=== PATIENT | male | born 1950 | race Caucasian/White ===

== ENCOUNTER 2017-01-02 10:00 | Outpatient (CLI) | payer MEDICARE, OTHER ==
[~2017-01-02] VITALS: Ht 177.8 cm; Wt 83.2 kg
--- NOTE | ~2017-01-02 | HEMODYNAMI ---
PATIENT:BRANDI PHILLIPS MEDICAL RECORD: [id number] : 50 [address] [id number] ADMISSION DATE: 01/02/17 Generatedon:01/02/201718:02 Patient name: BRANDI PHILLIPS Patient #: [id number] SSN: : 1950 Date of study: 01/02/2017 Page: Of Hemodynamic Procedure Report Patient Data Patient Demographics Procedure consent was obtained First Name: BRANDI Gender: Male Last Name: JACQUELINE : 1950 [facility] Initial: R Age: 66 year(s) Patient #: [id number] Race: Unknown Additional ID: [id number] Contact details Address: [facility] [place] State: [place] City: [place] Zip code: [address] Past Medical History Allergies Allergen Reaction Date Comments Reported IV contrast dye 01/02/2017 Admission Admission Data Admission Date: 01/02/2017 Admission Time: 12:20 Room #: [facility] Procedure Procedure Types Cath Procedure Diagnostic Procedure LHC LHC w/Coronaries w/Grafts PCI Procedure Coronary Stent Coronary Stent Initial Miscellaneous Procedures Moderate Sedation up to 45 minutes Procedure Description Procedure Date Procedure Date: 01/02/2017 Procedure Start Time: 16:37 Procedure Staff Name Function Radha Ayala RT Monitor Babar Fernandez RN Nurse Sadie Garces RN Nurse Blade Elkins MD Performing Physician Eduardo Fernandez RT Scrub Procedure Data Cath Procedure Fluoroscopy Diagnostic fluoroscopy Total fluoroscopy Time: time: 14.7 min 14.7 min Diagnostic fluoroscopy Total fluoroscopy dose: dose: 2759 mGy 2759 mGy Contrast Material Contrast Material Type Amount (ml) Isovue 300 245 Entry Location Entry Primary Successful Side Size Upsize Upsize Entry Closure Succes sful Closure Location (Fr) 1 (Fr) 2 (Fr) Remarks Device Remarks Brachial Right 6 Fr Exoseal artery Short Femoral Right 5 Fr 6 Fr Exoseal artery Short Estimated blood loss: 10 ml Diagnostic catheters Device Type Used For End Catheter Placement Cordis 5Fr Pigtail Abdominal Catheter (MP) aortogram with runoff Cordis 5Fr 3DRC Catheter SVG Angiography (MP) Cordis 5Fr 3DRC Catheter Right Coronary (MP) Angiography Procedure Complications No complications Procedure Medications Medication Administration Route Dosage Oxygen NC 2 l/min Solumedrol I.V. 125 mg Heparin Flush Bag added to field 2 bags (1000units/500ml NS) 0.9% NaCl I.V. 100 ml/hr Pepcid I.V. 20 mg Versed I.V. 1 mg Fentanyl I.V. 50 mcg Versed I.V. 1 mg Fentanyl I.V. 50 mcg Fentanyl I.V. 50 mcg Versed I.V. 1 mg Fentanyl I.V. 50 mcg Lidocaine 2% added to field 20 Heparin Bolus I.V. 4000 units Heparin Flush Bag added to field 1 bags (1000units/500ml NS) Versed I.V. 1 mg Nitro Haiku S.L. 400 mcg Hemodynamics Rest Heart Rate: 43 (bpm) Snapshots Pre Cath Intra NCS Post Cath Vital Signs Time Heart Resp SPO2 etCO2 NIBP (mmHg) Rhythm Pain Sedation Rate (ipm) (%) (mmHg) Status Level (bpm) 16:23:23 42 17 97 0 177/74(146) SB 0 (11) 10(A) , No pain 16:28:58 43 23 96 33.7 184/76(145) SB 0 (11) 10(A) , No pain 16:33:35 42 20 95 34.5 164/71(133) SB 0 (11) 10(A) , No pain 16:38:01 45 16 96 28.4 162/74(124) SB 0 (11) 10(A) , No pain 16:42:29 41 14 96 36.7 158/70(118) SB 0 (11) 9(A) , No pain 16:46:56 43 14 95 38.2 159/74(130) SB 0 (11) 9(A) , No pain 16:51:10 45 15 96 40.5 144/80(124) SB 0 (11) 9(A) , No pain 16:56:27 45 16 96 37.5 146/74(106) SB 0 (11) 9(A) , No pain 17:00:54 49 16 94 39.7 145/77(118) SB 0 (11) 9(A) , No pain 17:06:17 45 15 96 0 134/67(102) SB 0 (11) 9(A) , No pain 17:10:37 44 15 95 0 135/60(100) SB 0 (11) 9(A) , No pain 17:15:00 42 16 95 0 134/56(98) SB 0 (11) 9(A) , No pain 17:19:20 43 14 94 0 133/62(104) SB 0 (11) 9(A) , No pain 17:23:40 43 15 94 0 129/61(99) SB 0 (11) 9(A) , No pain 17:27:58 43 15 96 0 134/62(104) SB 0 (11) 9(A) , No pain 17:32:16 43 16 95 0 141/67(111) SB 0 (11) 9(A) , No pain 17:37:33 43 16 97 0 164/70(131) SB 0 (11) 10(A) , No pain 17:42:57 43 15 98 1.5 174/78(133) SB 0 (11) 10(A) , No pain 17:47:07 50 15 97 30 149/93(135) SB 0 (11) 10(A) , No pain 17:51:09 48 15 95 0 170/80(138) SB 0 (11) 10(A) , No pain 17:55:33 50 15 93 0 165/75(130) SB 0 (11) 10(A) , No pain Medications Time Medication Route Dose Verified Delivered Reason Notes Effectiveness by by 16:28:39 Oxygen NC 2 Blade Eckert Per physician l/min Brittni Fernandez RN 16:28:47 Solumedrol I.V. 125 Blade Eckert Per physician mg Brittni Fernandez RN 16:28:57 Heparin Flush added 2 Blade Eckert used for Bag to bags Brittni Fernandez RN procedure (1000units/500ml field NS) 16:29:06 0.9% NaCl I.V. 100 Blade Eckert Per physician ml/hr Brittni Fernandez RN 16:30:43 Pepcid I.V. 20 mg Blade Eckert Per physician Brittni Fernandez RN 16:33:22 Versed I.V. 1 mg Blade Eckert for sedation Brittni Fernandez RN 16:33:28 Fentanyl I.V. 50 Blade Babar for sedation mcg Brittni Fernandez RN 16:42:46 Versed I.V. 1 mg Blade Triniie for sedation Brittni Garces RN 16:42:51 Fentanyl I.V. 50 Blade Triniie for sedation mcg Brittni Garces RN 16:46:18 Fentanyl I.V. 50 Blade Buffie for sedation mcg Brittni Garces RN 16:47:35 Versed I.V. 1 mg Blade Buffie for sedation Brittni Garces RN 17:02:22 Versed I.V. 1 mg Blade Buffie for sedation Brittni Garces RN 17:02:26 Fentanyl I.V. 50 Blade Buffie for sedation mcg Brittni Garces RN 17:11:21 Lidocaine 2% added 20ml Blade Blade for local to vial Brittni Elkins MD anesthetic field 17:19:59 Heparin Bolus I.V. 4000 Blade Buffie for verifi ed units Brittni Garces RN anticoagulation with dr elkins 17:25:43 Heparin Flush added 1 Blade Blade used for Bag to bags Brittni Elkins MD procedure (1000units/500ml field NS) 17:47:06 Nitro Haiku S.L. 400 Buffie Per physician bhavesh Garces RNresidential sales consultant Log Time Note 16:00:27 Babar Fernandez RN sent for patient. Start room use. 16:21:34 Time tracking: Regular hours 16:21:38 Plan of Care:Hemodynamics will remain stable., Cardiac rhythm will remain stable., Comfort level will be maintained., Respiratory function will remain adequate., Patient/ family verbilizes understanding of procedure., Procedure tolerated without complication., Recovers from procedure without complications.. 16:21:44 Patient received from PCU to CCL 2 Alert and oriented. Tansferred to table in Supine position. 16:21:53 Warm blankets applied, and juan hugger turned on for patient comfort. 16:21:54 Correct patient and procedure confirmed by team. 16:21:55 ECG and BP/O2 sat monitors applied to patient. 16:21:55 Signed procedure consent form obtained from patient. 16:22:03 Vital chart was started 16:22:08 Baseline sample Acquired. 16:22:18 Rhythm: sinus bradycardia 16:22:20 Full Disclosure recording started 16:27:09 H&P Date Dictated: 01/02/2017 Within 30 days and on chart., ER History on chart.. 16:27:10 Pre-procedure instructions explained to patient. 16:27:11 Pre-op teaching completed and patient verbalized understanding. 16:27:18 Family in patients room. 16:27:20 Patient NPO since Midnight. 16:27:34 Patient allergic to IV contrast dye 16:27:40 Is the patient allergic to Iodine/contrast media? Yes. 16:27:52 Was the patient premedicated? Yes 16:27:54 Is patient on blood thinner?Yes 16:28:38 ACC The patient was administered the following blood thiners within the last 24 hours: ACCPlavix 16:28:39 Oxygen 2 l/min NC was administered by Babar Fernandez RN; Per physician; 16:28:47 Solumedrol 125 mg I.V. was administered by Babar Fernandez RN; Per physician; 16:28:56 Patient diabetic? Unknown. 16:28:57 Heparin Flush Bag (1000units/500ml NS) 2 bags added to field was administered by Babar Fernandez RN; used for procedure; 16:29:06 If diabetic: On Metformin? No 16:29:06 0.9% NaCl 100 ml/hr I.V. was administered by Babar Fernandez RN; Per physician; 16:29:10 Previous problem with sedation/anesthesia? No ? 16:29:15 Snore? No 16:29:16 Sleep apnea? No 16:29:19 Deviated septum? No 16:29:20 Opens mouth fully? Yes 16:29:21 Sticks out tongue? Yes 16:29:24 Airway obstruction? No ? 16:29:26 Dentures? No ? 16:29:29 Pre procedure: right dorsailis pedis pulse 2+ Normal; easily identifiable; not easily obliterated 16:29:31 Patient pain scale 0/10 ?. 16:29:38 IV patent on arrival in right forearm with 0.9% NaCl at [facility]. 16:29:41 Lab results completed and on chart. 16:29:43 Right groin area was prepped with chlora-prep and draped in sterile fashion 16:29:44 Sharps counted by scrub and verified by R.N. 16::44 Alarms reviewed by R. N. 16::47 Use device set Femoral Dx 16::48 Acist Syringe opened to sterile field. 16:29:49 Medline Cath Pack opened to sterile field. 16::49 Bag Decanter opened to sterile field. 16:29:50 St Markell 260cm J .035 wire opened to sterile field. 16:29:50 Terumo 5Fr [place] Sheath opened to sterile field. 16:29:51 Acist Hand Control opened to sterile field. 16:29:52 Diagnostic Infinity 5Fr Multipack catheter opened to sterile field. 16:29:52 Acist Manifold opened to sterile field. 16:29:53 Tegaderm 4 x 4 opened to sterile field. 16:30:13 Final Timeout: patient, procedure, and site verified with staff and physician. All members of the team are in agreement. 16:30:15 Right groin site verified by team. 16:30:19 Physical assessment completed. ASA score P 2 - A patient with mild systemic disease as per Blade Elkins MD. 16:30:24 Sedation plan: IV Moderate Sedation Medication:Versed, Fentanyl 16:30:43 Pepcid 20 mg I.V. was administered by Babar Fernandez RN; Per physician; 16:33:22 Versed 1 mg I.V. was administered by Babar Fernandez RN; for sedation; 16:33:28 Fentanyl 50 mcg I.V. was administered by Babar Fernandez RN; for sedation; 16:36:37 Zero performed for pressure channel P1 16:36:51 Procedure started. 16:37:58 Local anesthetic to right femoral artery with Lidocaine 2% by Blade Elkins MD.INITIAL ACCESS ONLY 16:42:28 Left groin area was prepped with chlora-prep and draped in sterile fashion 16:42:46 Versed 1 mg I.V. was administered by Sadie Garces RN; for sedation; 16:42:51 Fentanyl 50 mcg I.V. was administered by Sadie Garces RN; for sedation; 16:45:00 Local anesthetic to left femerol artery with Lidocaine 2% by Blade Elkins MD.ADDITIONAL ACCESS 16:46:18 Fentanyl 50 mcg I.V. was administered by Sadie Garces RN; for sedation; 16:47:35 Versed 1 mg I.V. was administered by Sadie Garces RN; for sedation; 16:55:00 Left Iliac occluded. 16:55:13 Right Brachial area was prepped with chlora-prep and draped in sterile fashion 16:55:39 Local anesthetic to right brachial artery with Lidocaine 2% by Blade Elkins MD.ADDITIONAL ACCESS 16:58:34 A 6 Fr Short sheath was inserted into the Right Brachial artery 17:00:12 Terumo 6Fr Slender Raynadesalemth opened to sterile field. 17:01:08 A Cordis 5Fr Pigtail Catheter (MP) was advanced over the wire and used for Abdominal aortogram with runoff. 17:02:22 Versed 1 mg I.V. was administered by Sadie Garces RN; for sedation; 17:02:26 Fentanyl 50 mcg I.V. was administered by Sadie Garces RN; for sedation; 17:04:15 LV gram done using GLASER 17:04:18 Injector settings: Ml/sec: 10, Volume: 20, 17:04:26 EF : 40 % 17:05:30 Catheter removed. 17:06:25 Cordis 6FR XBLAD 3.5 guide catheter opened to sterile field. 17:08:30 6 Fr XBLAD 3.5 guide catheter was inserted over the wire 17:08:36 Guide Catheter removed. unable to cannulate vessel. 17:09:09 Medtronic Launcher 6Fr EBU 3.0 guide catheter opened to sterile field. 17:09:30 6 Fr EBU 3.0 guide catheter was inserted over the wire 17:11:21 Lidocaine 2% 20ml vial added to field was administered by Blade Elkins MD; for local anesthetic; 17:11:32 Guide Catheter removed. unable to cannulate vessel. 17:12:01 St Markell 260cm J .035 wire opened to sterile field. 17:12:27 Re-Attempting access in RFA 17:13:46 A 5 Fr sheath was inserted into the Right Femoral artery 17:15:18 Terumo 6Fr [place] Sheath opened to sterile field. 17:15:28 Sheath upsized to a 6 Fr Short. 17:16:51 6 Fr EBU 3.0 guide catheter was inserted over the wire 17:19:21 Merit BasixCompak Inflation Kit opened to sterile field. 17:19:59 Heparin Bolus 4000 units I.V. was administered by Sadie Garces RN; for anticoagulation; verified with dr elkins 17:20:03 Robles Whisper J 300cm 0.014 guide wire opened to sterile field. 17:21:59 Whisper wire advanced. 17:23:46 The Reynold OTW 2.25 x 12 stent was advanced then removed because of failure to cross lesion 17:25:41 Inflation number: 1 A Euphora 2.0 x 20 Balloon was prepped and advanced across the Mid CX, then inflated to 17 LINDEN for 0:13 (min:sec). 17:25:43 Heparin Flush Bag (1000units/500ml NS) 1 bags added to field was administered by Blade Elkins MD; used for procedure; 17:25:55 Inflation number: 2 The Euphora 2.0 x 20 Balloon was reinflated across the Mid CX, to 17 LINDEN for 0:11 (min:sec). 17:26:41 Inflation number: 3 The Euphora 2.0 x 20 Balloon was reinflated across the Mid CX, to 23 LINDEN for 0:34 (min:sec). 17:27:13 Balloon removed over the wire. 17:29:07 Inflation Number: 4 A [place] OTW 2.25 x 12 stent was prepped and advanced across the Mid CX. The stent was deployed at 15 LINDEN for 0:10 (min:sec). 17:30:03 Stent catheter was removed intact over wire. 17:30:19 Guide catheter removed. 17:30:19 Wire removed. 17:31:34 A Cordis 5Fr 3DRC Catheter (MP) was advanced over the wire and used for SVG Angiography.to RCA 17:33:29 A Cordis 5Fr 3DRC Catheter (MP) was advanced over the wire and used for Right Coronary Angiography. 17:33:39 Catheter removed. 17:34:59 Sheath removed intact; hemostasis achieved with Exoseal to the Right Brachial artery. 17:35:04 Sheath removed intact; hemostasis achieved with Exoseal to the Right Femoral artery. 17:35:13 Procedure ended.(Physican Out) 17:36:30 Fluoroscopy time 14.70 minutes. 17:36:34 Fluoroscopy dose: 2759 mGy 17:36:34 Flurop Dose total: 2759 17:37:03 Contrast amount:Isovue 300 245ml. 17:37:04 Sharps counted by scrub and verified by R.N. 17:37:06 Insertion/operative site no bleeding no hematoma. 17:37:10 Post-op/insertion site Right Brachial artery dressed using a 4 x 4 and Tegaderm. 17:37:15 Post right brachial artery:stable, clean and dry 17:37:21 Post-op/insertion site Right Femoral artery dressed using a 4 x 4 and Tegaderm. 17:37:24 Post right femoral artery:stable, clean and dry 17:37:32 Post Procedure Pulses reassessed and unchanged 17:37:35 Post-procedure physical assessment completed. ASA score P 2 - A patient with mild systemic disease as per Blade Elkins MD. 17:37:37 Post procedure rhythm: unchanged. 17:38:14 Estimated blood loss: 10 ml 17:38:15 Post procedure instruction explained to patient.Patient verbalizes understanding. 17:38:16 Patient needs reinforcement of post procedure teaching. 17:38:35 Procedure type changed to Cath procedure, Diagnostic procedure, LHC, LHC w/Coronaries w/Grafts, PCI procedure, Coronary Stent, Coronary Stent Initial, Miscellaneous Procedures, Moderate Sedation up to 45 minutes 17:39:00 Procedure Complication : No complications 17:39:02 See physician's report for complete and final results. 17:39:46 Cordis 6Fr Exoseal opened to sterile field. 17:39:58 Cordis 6Fr Exoseal opened to sterile field. 17:41:32 Procedure and supply charges have been captured, reviewed, submitted and are correct. 17:47:06 Nitro Haiku 400 mcg S.L. was administered by Sadie Garces RN; Per physician; 17:59:38 Full Disclosure recording stopped 18:01:23 Report given to PCU. 18:01:25 Patient transfered to PCU with Bed. 18:01:28 End room use (Document Last) Intervention Summary Intervention Notes Time ActionType Lesion and Equipment Action# Pressure Duration Attributes Used 17:23:46 Discard Reynold OTW Stent 2.25 x 12 stent 17:25:41 Inflate Mid CX Euphora 1 17 00:14 balloon 2.0 x 20 Balloon 17:25:55 Reinflate Mid CX Euphora 2 17 00:11 balloon 2.0 x 20 Balloon 17:26:41 Reinflate Mid CX Euphora 3 23 00:34 balloon 2.0 x 20 Balloon 17:29:07 Place stent Mid CX Reynold OTW 4 15 00:10 2.25 x 12 stent Device Usage Item Name Manufacture Quantity Catalog Hospital Part Current Minimal Lot# / Number Charge Number Stock Stock Serial# Code Acist Acist 1 43884 056047 514879 385549 20 Syringe Medical Systems Inc Bag Microtek 1 2002S 806603 22043 006127 5 Insplorion Inc. Medline Cardinal 1 [id number] 030575 30454 194712 5 Cath Pack Health Terumo 5Fr Terumo 1 HSE004 679705 548836 228437 [address] [place] [address] Markell 2 365712 724590 446952 444918 30 260cm J .035 wire Acist Hand Acist 1 71795 560064 149137 169043 5 TeamStreamz Medical [employer] Library Inc Acist Acist 1 82695 594250 884829 352306 5 Oxitec Systems Inc Diagnostic Cardinal 1 [id number] 598811 06853 977414 30 Enterprise Communication Mediaity Health 5Fr Multipack catheter Tegaderm 4 3M 1 1626W 302293 272870 187868 5 x 4 Terumo 6Fr Terumo 1 [id number] 040869 762685 428533 40 Slender Glidesheath Cordis 5Fr Cardinal 1 [id number] 5 Pigtail Health Catheter (MP) Cordis 6FR Cardinal 1 [id number] 528889 930096 190651 10 XBLAD 3.5 Health guide catheter Medtronic Medtronic 1 [id number] 783612 82071 933704 0 Launcher 6Fr EBU 3.0 guide catheter Terumo 6Fr Terumo 1 [id number] 249670 096969 203195 40 [place] Sheath Merit Merit 1 [id number] 383556 182323 592852 15 BasThe Royal [employer] Medical Inflation Kit Robles Robles 1 [id number] 955787 216297 024089 5 Whisper J Vascular 300cm 0.014 guide wire [place] OTW Medtronic 1 [id number] 067742 55214 761080 5 [id number] 2.25 x 12 stent Euphora 2.0 Medtronic 1 [id number] 254653 546482 677382 5 [id number] x 20 Balloon Cordis 5Fr Cardinal 1 [id number] [place] [address] Catheter () Cordis 6Fr Cardinal 2 EX600 847003 543005 075928 10 [facility] Health Signature Audit [place] Stage Time Signature Unsigned Intra-Procedure 01/02/2017 Radha 6:01:41 PM Counts RT(R) Signatures Monitor : Radha Signature : Counts RT Date : Time : [id number] [place] [address]
[~2017-01-02 10:00] MED LIST: ACCURETIC 20-121 TAB PO; ASPIRIN 81 MG E81 MG PO; BAYER ASPIRIN325 MG PO; CARDURA2 MG PO; CELEXA20 MG PO; GLIPIZIDE10 MG PO; GLUCOTROL XL 5 M5 MG PO; LISINOPRIL10 MG PO; MUCOMYST PO; NITROQUICK0.4 MG SL; PERCOCET 10/3251 TA1 PO; PLAVIX75 MG PO; PREDNISONE20 MG PO; PREDNISONE5 MG PO; PROTONIX40 MG PO; TOPROL XL50 MG PO; VITAMIN C1000 MG PO; VITAMIN D31000 UNIT PO; VITAMIN E1000 UNIT PO; ZETIA10 MG PO
[2017-01-02 10:40] LABS: BASOPHILS 0.3 % (0-2); EOSINOPHILS 0.7 % (0-7); HEMOGLOBIN 16.1 g/dL (13.5-17.5); IMMATURE GRANULOCYTES 0.2 % (0-5); LYMPHOCYTES 15.9 % (15-50); MCHC 34.3 g/dL (31.0-37.0); MCV 90.4 fL (80.0-100.0); MEAN PLATELET VOLUME 10.2 fL (7.4-10.4); NEUTROPHILS 73.9 % (40-80); PLATELET COUNT 190 10x3/uL (130-400); RDW 12.5 % (11.5-14.5); WBC 6.1 10x3/uL (4.8-10.8)
[2017-01-02 11:03] LABS: ALBUMIN 3.4 g/dL (3.4-5.0); ALKALINE PHOSPHATASE 75 U/L (46-116); ALT (SGPT) 15 U/L (10-68); BILIRUBIN - TOTAL 0.39 mg/dL (0.2-1.3); CALC OSMOLALITY 282 mosm/kg (275-300); CALCIUM 9.1 mg/dL (8.5-10.1); CARBON DIOXIDE 28.1 mmol/L (21.0-32.0); CHLORIDE - SERUM 101 mmol/L (98-107); CREATININE - SERUM 1.4 mg/dL (0.6-1.3); GLUCOSE 207 mg/dL (74-106); SODIUM 137 mmol/L (136-145); UREA NITROGEN 20 mg/dL (7-18); eGFR NON AFRICAN AMERICAN 54 mL/min (90-120)
[2017-01-02 11:14] LABS: CHOLESTEROL, TOTAL 147 mg/dL (0-200); CKMB 1.7 U/L (0.0-3.6); CREATINE KINASE 58 UL (21-232); HDL CHOLESTEROL 37 mg/dL (32-96); LDL CHOLESTEROL 78 mg/dL (0-100); LDL-HDL RATIO 2.1 ratio (1.5-3.5); TRIGLYCERIDE 162 mg/dL (30-200); TROPONIN-I < 0.017 ng/mL (0.000-0.060)
--- NOTE | 2017-01-02 14:00 | NUR ---
PATIENT TO ROOM FROM ER, PATIENT IS ALERT AND ORIENTED AT THIS TIME, PATIENT WALKING AROUND ROOM. PATIENT IS BEING ADMITTED WITH CHEST PAIN, DENIES ANY CURRENT CHEST PAIN. PATIENT HAS A 20 G R WRIST IV THAT IS SL AT THIS TIME. PATIENT DENIES ANY NEEDS. CPOC
[2017-01-02 14:39] VITALS: BP 173/54; Ht 177.8 cm; Wt 83.2 kg
--- NOTE | 2017-01-02 15:09 | NUR ---
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
--- NOTE | 2017-01-02 16:15 | NUR ---
PATIENT GONE TO STRAP BUCKLER MACHINE
--- NOTE | 2017-01-02 18:00 | NUR ---
PATIENT BACK FROM [facility], PATIENT ALERT AND ORIENTED. R GROIN SITE WNL, NO HEMATOMA. R BRACHIAL SITE, WNL. NO SIGNS OF HEMATOMA. AT BEDSIDE. PATIENT VS STABLE. CPOC
--- NOTE | 2017-01-02 18:44 | NUR ---
PATIENT INFORMED I WAS LEAVING, TIME FOR SWITCHING SHIFTS. PATIENT NEEDS MET. DENIES ANY OTHER NEEDS. CPOC
[2017-01-02 19:00] VITALS: BP 159/60
[2017-01-03 01:21] VITALS: BP 166/52
[2017-01-03 04:00] VITALS: BP 175/53
--- NOTE | 2017-01-03 04:02 | NUR ---
PATIENT RESTING WELL IN BED, IS AT BEDSIDE. BOTH SITES FROM HEART CATH ARE CLEAN DRY AND INTACT. CALL LIGHT IN REACH.
--- NOTE | 2017-01-03 08:04 | NUR ---
AM ROUNDS - PT IS AWAKE AND SITTING IN THE CHAIR AT THIS TIME. AT BEDSIDE. MONITOR AHOWING AR, HR 69. IV TO RIGTH WRIST, RIGHT WRIST. BED AT LOWEST POSITION. CALL SHELBY IN USE/REACH. SIDE RAILS UP X2. WILL CONTINEU TO MONITOR
--- NOTE | 2017-01-03 08:47 | NUR ---
IV REMOVED WTIH TIP INTACT. NO BLEEDING FROM WRIST SITE AND NO BLEEDING FROM GROIN SITE. DISCHARGE INSTRUCTIONS GIVEN TO PT. PT UNDERSTANDS. TO CAR VIA [place].
--- NOTE | 2017-01-17 12:14 | DS ---
PATIENT:BRANDI WILBURN :50 MEDICAL RECORD: [id number] DISCHARGE SUMMARY ADMISSION DATE: 01/02/17 DISCHARGE DATE: 01/03/17 DISCHARGE DIAGNOSES: 1. Angina. 2. Coronary artery disease. 3. PTCA and stent of left circumflex this admission. 4. Previous bypass surgery. 5. Previous PTCA and stent. 6. Hypertension. 7. Hyperlipidemia. 8. Peripheral vascular disease. HISTORY AND HOSPITAL COUSE: Mr. Wilburn presented with anginal symptomatology. Found to have significant disease of the left circumflex and RCA. Underwent PTCA and stent of the left circumflex. He was discharged home, will be brought back next Monday for PTCA and stent of the RCA. TRANSINT:[id number] Voice Confirmation ID: [id number] DOCUMENT ID: [id number] DALLAS DEWITT MD at 1214 CC: [id number] DICTATION DATE: 01/03/17 0756 ORDNANCE ENGINEERING TECHNICIAN: 01/03/17 1108 DEP CLI 01/03/17 [id number] [place] [address]
--- NOTE | 2017-01-17 12:14 | HP ---
PATIENT: BRANDI WILBURN MEDICAL RECORD: [id number] ACCOUNT: [id number] LOCATION:[facility] : 50 ADMISSION DATE: 01/02/17 HISTORY AND PHYSICAL EXAMINATION DIAGNOSES: 1. Unstable angina. 2. Coronary artery disease. 3. Status post coronary bypass graft surgery. 4. Status post PTCA stent. 5. Hypertension. 6. Hyperlipidemia. HISTORY OF PRESENT ILLNESS: Mr. Wilburn presents with 2 days of unstable anginal symptomatology in an escalating fashion. He does have a history of coronary artery disease, bypass surgery 11 years ago. PTCA stent approximately 2 years ago. He has T-wave inversions on his EKG. PHYSICAL EXAMINATION: GENERAL APPEARANCE: Well-nourished, well-developed, appears stated age. Level of distress, comfortable. PSYCHIATRIC: Mental status, alert, normal affect. Orientation, oriented to time, place and person. EYES: Lids and conjunctiva, noninjected. No discharge, no pallor. ENT: Lips, teeth, gums, normal dentition. Oropharynx, no cyanosis, no pallor. NECK: Carotid arteries, bilateral normal upstroke, no bruits, no thrills. JUGULAR VEINS: No jugular venous pressure or distention. CERVICAL LYMPH NODES: Nontender, nonenlarged. THYROID: Not enlarged. Nontender. No nodules. LUNGS: Respiratory effort, unlabored. CHEST: Normal curvature. No thoracic deformity. No chest wall tenderness. Percussion, resonant. Auscultation, clear. No wheezes, no rales, no rhonchi. CARDIOVASCULAR: Precordial exam, nondisplaced. No heaves or pericardial thrills. Rate and rhythm, regular. Heart sounds, normal S1, normal S2. No S3, no gallop, no rub. Systolic murmur, not heard. Diastolic murmur, not heard. EXTREMITIES: No cyanosis, no edema. Peripheral pulses, full and equal in all extremities, except as noted. No bruits appreciated. ABDOMEN: Soft, nondistended. Normal aorta. No bruit. Nontender. No masses. Liver, nontender, no hepatomegaly. Spleen, nontender, no splenomegaly. MUSCULOSKELETAL: No joint tenderness. No joint swelling. No erythema. NEUROLOGICAL: Normal gait, normal strength, normal tone. SKIN: Warm and dry. REVIEW OF SYSTEMS: The patient reports easy bruising but reports no swollen glands. The patient reports no fever, no night sweats, no significant weight gain, no significant weight loss. No significant exercise tolerance. The patient reports no dry eyes, no irritation, no vision change. Patient reports no difficulty hearing and no ear pain. Patient reports no frequent nose bleeds or nose and sinus problems. Patient reports on arm pain on exertion. No shortness of breath while lying down. No history of heart murmur. Patient reports no cough, no wheezing or coughing up blood. Patient reports no abdominal pain, no vomiting. Normal appetite. No diarrhea and not vomiting blood. No nausea and no constipation. Patient reports no incontinence. No difficulty urinating. No hematuria. No increased frequency. Patient reports no muscle aches. No weakness, no arthralgias, no back pain. No swelling of the HISTORY AND PHYSICAL [id number] BRANDI WILBURN extremities. Patient reports no abnormal mole, no jaundice, no rashes. Reports no loss of consciousness. No weakness and no numbness. No seizures, dizziness, or headaches. The patient reports no depression, no sleep disturbance, feeling safe in a relationship and no alcohol abuse. Patient reports on fatigue. Reports no runny nose or sinus pressure. No itching, no hives, and no frequent sneezing. OVERALL IMPRESSION: Unstable anginal symptomatology with abnormal ECG, most likely he has hemodynamically significant coronary artery disease. We will proceed with coronary angiography. Further care depends upon findings of the angiography. TRANSINT:[id number] Voice Confirmation ID: [id number] DOCUMENT ID: [id number] DALLAS DEWITT MD at 1214 CC: [id number] DICTATION DATE: 01/02/171217 HOUSING COORDINATOR: 01/02/17 1323 DEP CLI 01/03/17 [place] [address]
--- NOTE | 2017-01-17 12:17 | OP ---
PATIENT NAME: BRANDI PHILLIPS MEDICAL RECORD: [id number] :50 LOCATION:D.ER ADMISSION DATE: SURGEON: DALLAS DEWITT MD DATE OF OPERATION: 01/02/2017 PROCEDURES: 1. Percutaneous transluminal coronary angioplasty stent, left circumflex. 2. Left heart catheterization. 3. Selective coronary angiography. 4. Vein graft angiography. 5. Left ventriculogram. INDICATION: Angina and coronary artery disease. PROCEDURE IN DETAIL: After informed consent was obtained and after detailed explanation of risks, benefits as well as alternative therapies, the patient elected to proceed with angiogram and angioplasty. The right femoral area was prepped and draped in normal sterile fashion. The right femoral artery was cannulated via modified Seldinger technique with placement of 6-Japanese sheath. All catheters exchanged through this sheath. FINDINGS: The left ventriculogram was performed in standard 30-degree GLASER view reveals global hypokinesis, ejection fraction 40%. SELECTIVE CORONARY ANGIOGRAPHY: 1. Left main is with no significant angiographic disease. 2. Left anterior descending is subtotally occluded in mid vessel. 3. LIRA to the LAD is widely patent. 4. The left circumflex is nongrafted. There is a 90% stenosis proximally. This is worse from previous angiography. 5. The right coronary artery is totally occluded. 6. Vein graft to the right coronary artery is patent. The distal right coronary artery has 90% stenosis. PTCA STENT OF THE LEFT CIRCUMFLEX: The stent used was a 2.25- x 12-mm Reynold. Result was 0% residual stenosis. OVERALL IMPRESSION: Successful percutaneous transluminal coronary angioplasty stent of the left circumflex going from 90% initial stenosis to 0% residual stenosis. PLAN: PTCA stent of the distal right coronary through the vein graft in the near future. TRANSINT:[id number] Voice Confirmation ID: [id number] DOCUMENT ID: [id number] DALLAS DEWITT MD at 1217 CC: [id number] DICTATION DATE: 01/02/171756 ALGEBRA TUTOR: 01/02/17 2339 DEP CLI 01/03/17 [place] [address]
--- NOTE | 2017-01-17 12:17 | OP ---
PATIENT NAME: BRANDI PHILLIPS MEDICAL RECORD: [id number] :50 LOCATION:D.ER ADMISSION DATE: SURGEON: DALLAS DEWITT MD DATE OF OPERATION: 01/02/2017 PROCEDURES PERFORMED: 1. Aortofemoral runoff. 2. Abdominal aortography. INDICATION: Claudication and peripheral vascular disease. PROCEDURE IN DETAIL: The right brachial area was prepped and draped in normal sterile fashion. The right brachial artery was cannulated via modified Seldinger technique with placement of 5-Croatian sheath. All catheters exchanged through this sheath. FINDINGS: The left leg is totally occluded at the common iliac. This then reconstitutes via collaterals. There is a crossover graft going from right to left. Stents then are in the SFA. These are patent with no significant restenosis. The distal SFA is widely patent as well. Popliteal and infrapopliteal vessels are patent with 3-vessel runoff to the foot. RIGHT LEG: A. ILIAC: The common internal and external iliacs have previously placed stents. These are patent with no significant restenosis. Femoral system is widely patent with only mild irregularities. Popliteal and infrapopliteal vessels are patent. The catheter was then retracted from the abdominal aortography. Abdominal aortography reveals no significant abdominal aortic disease. No dissection or aneurysm formation. OVERALL IMPRESSION: Wide patency of the right leg, total occlusion of the left leg, patent femoral-femoral crossover graft. Continue medical management of the peripheral vascular disease and peripheral risk factors. TRANSINT:[id number] Voice Confirmation ID: [id number] DOCUMENT ID: [id number] DALLAS DEWITT MD at 1217 CC: [id number] DICTATION DATE: 01/02/171756 FIBRE COMPOSITE TECHNICIAN: 01/02/17 2350 DEP CLI 01/03/17 [place] [address]
== END 2017-01-03 10:50 | disposition home or self-care (01) ==
LOC: OBSVTIME → D.ER 10:00 → OBSVTIME 12:20 → D.M2 12:20 → D.ER 12:20 → D.M2 12:20 → EDSTATUS 14:00 → D.M2 01-03 10:50 → D.ER 01-03 10:50 → D.M2 01-03 10:50
PROVIDERS: Emergency Medicine
DX: I25.110 Atherosclerotic heart disease of native coronary artery with unstable angina pectoris (principal); Z95.5 Presence of coronary angioplasty implant and graft; Z95.1 Presence of aortocoronary bypass graft; E78.5 Hyperlipidemia, unspecified; I10 Essential (primary) hypertension; R94.31 Abnormal electrocardiogram [ECG] [EKG]; I73.9 Peripheral vascular disease, unspecified; I70.92 Chronic total occlusion of artery of the extremities
CPT/HCPCS: 93459; C9600

== ENCOUNTER 2017-01-09 08:30 | Outpatient (CLI) | payer MEDICARE, OTHER ==
[~2017-01-09] VITALS: Ht 177.8 cm; Wt 84.1 kg
--- NOTE | ~2017-01-09 | HEMODYNAMI ---
PATIENT:BRANDI PHILLIPS MEDICAL RECORD: [id number] : 50 LOCATION:D.CAT ADMISSION DATE: 01/09/17 Generatedon:01/09/201710:57 Patient name: BRANDI PHILLIPS Patient #: [id number] SSN: : 1950 Date of study: 01/09/2017 Page: Of Hemodynamic Procedure Report Patient Data Patient Demographics Procedure consent was obtained First Name: BRANDI Gender: Male Last Name: JACQUELINE : 1950 [facility] Initial: R Age: 66 year(s) Patient #: [id number] Race: Unknown Additional ID: [id number] Contact details Address: [facility] [place] State: [place] City: [place] Zip code: [address] Past Medical History Allergies Allergen Reaction Date Comments Reported IV contrast dye 01/02/2017 Other allergy 01/09/2017 iodine Admission Admission Data Admission Date: 01/09/2017 Admission Time: 8:30 Lab Results Lab Result Date: 01/09/2017 Lab Result Time: 0:00 Biochemistry Name Units Result Min Max BUN mg/dl 20 --(----)*- 7 18 Creatinine mg/dl 1.4 --(----)*- 0.6 1.3 Procedure Procedure Types Cath Procedure PCI Procedure AMI/SVG/HOUSEKEEPING SUPERVISOR HOTEL PTCA or Stent SVG-BMS/REGLA Initial Miscellaneous Procedures Moderate Sedation up to 15 minutes Procedure Description Procedure Date Procedure Date: 01/09/2017 Procedure Start Time: 10:46 Procedure End Time: 10:56 Procedure Staff Name Function Blade Elkins MD Performing Physician Nelsy Hough RT Monitor Kayli Moore RT Scrub Sera Cooper RN Nurse Babar Fernandez RN Plant Operations Coordinator Procedure Data Cath Procedure Fluoroscopy Diagnostic fluoroscopy Total fluoroscopy Time: 2.9 time: 2.9 min min Diagnostic fluoroscopy Total fluoroscopy dose: 453 dose: 453 mGy mGy Contrast Material Contrast Material Type Amount (ml) Isovue 300 49 Entry Location Entry Primary Successful Side Size Upsize Upsize Entry Closure Succes sful Closure Location (Fr) 1 (Fr) 2 (Fr) Remarks Device Remarks Femoral Right 6 Fr Exoseal artery Short Estimated blood loss: 5 ml Procedure Complications No complications Procedure Medications Medication Administration Route Dosage Oxygen NC 2 l/min Lidocaine 2% added to field 20 Heparin Flush Bag added to field 2 bags (1000units/500ml NS) 0.9% NaCl I.V. 100 ml/hr Fentanyl I.V. 50 mcg Versed I.V. 1 mg Versed I.V. 1 mg Fentanyl I.V. 50 mcg Fentanyl I.V. 50 mcg Versed I.V. 1 mg Heparin Bolus I.V. 4000 units Fentanyl I.V. 50 mcg Versed I.V. 1.5 mg Hemodynamics Rest Heart Rate: 48 (bpm) Snapshots Pre Cath Intra NCS Post Cath Vital Signs Time Heart Resp SPO2 etCO2 NIBP (mmHg) Rhythm Pain Sedation Rate (ipm) (%) (mmHg) Status Level (bpm) 10:30:37 47 16 99 32.2 189/76(140) SB 0 (11) 10(A) , No pain 10:35:37 48 17 99 33.7 Measuring NSR 0 (11) 10(A) , No pain 10:35:57 49 18 99 33.7 178/72(135) NSR 0 (11) 10(A) , No pain 10:40:25 46 17 97 36.7 167/71(127) NSR 0 (11) 10(A) , No pain 10:44:48 49 14 95 37.4 163/66(133) NSR 0 (11) 9(A) , No pain 10:49:46 48 18 95 40.4 Measuring NSR 0 (11) 9(A) , No pain 10:50:11 47 14 95 43.4 166/74(130) NSR 0 (11) 9(A) , No pain 10:54:39 48 14 97 32.9 161/80(121) NSR 0 (11) 10(A) , No pain Medications Time Medication Route Dose Verified Delivered Reason Notes Effectiveness by by 10:29:28 Oxygen NC 2 Blade Zamora used for l/min Brittni Cooper traffic workforce representative 10:29:35 Lidocaine 2% added 20ml Blade Murguia for local to vial Brittni Elkins MD anesthetic field 10:29:43 Heparin Flush added 2 Blade Murguia used for Bag to bags Brittni Elkins MD procedure (1000units/500ml field NS) 10:29:54 0.9% NaCl I.V. 100 Blade Sera Per physician ml/hr Brittni Cooper RN 10:43:23 Fentanyl I.V. 50 Babar Sera for sedation mcg Jim Cooper RN RN 10:43:35 Versed I.V. 1 mg Blade Sera for sedation Brittni Cooper RN 10:45:16 Versed I.V. 1 mg Blade Sera for sedation Brittni Cooper RN 10:45:25 Fentanyl I.V. 50 Blade Sera for sedation mcg Brittni Cooper RN 10:49:14 Fentanyl I.V. 50 Blade Sera for sedation mcg Brittni Cooper RN 10:49:24 Heparin Bolus I.V. 4000 Blaed Sera for verifi ed units Brittni Cooper RN anticoagulation by dr. elkins 10:49:24 Versed I.V. 1 mg Blade Sera for sedation Brittni Cooper RN 10:52:30 Fentanyl I.V. 50 Blade Sera for sedation mcg Brittni Cooper RN 10:52:38 Versed I.V. 1.5 Blade Sera for sedation mg Brittni Cooper RN Procedure Log Time Note 10:22:28 Diagnostic Cath status Elective 10:22:30 Babar Fernandez RN sent for patient. Start room use. 10:22:32 Time tracking: Regular hours 10:22:40 Plan of Care:Hemodynamics will remain stable., Cardiac rhythm will remain stable., Comfort level will be maintained., Respiratory function will remain adequate., Patient/ family verbilizes understanding of procedure., Procedure tolerated without complication., Recovers from procedure without complications.. 10:22:52 Patient received from Pre/Post Procedure Room to CCL 2 Alert and oriented. Tansferred to table in Supine position. 10:22:54 Warm blankets applied, and juan hugger turned on for patient comfort. 10:22:55 Correct patient and procedure confirmed by team. 10:22:59 Signed procedure consent form obtained from patient. 10:23:08 H&P Date Dictated: 01/09/2017 Within 30 days and on chart., H&P Addendum completed by physician on day of procedure. (MUST COMPLETE FOR ALL OUTPATIENTS). 10:28:05 Vital chart was started 10:29:28 Oxygen 2 l/min NC was administered by Sera Cooper RN; used for procedure; 10:29:35 Lidocaine 2% 20ml vial added to field was administered by Blade Elkins MD; for local anesthetic; 10:29:43 Heparin Flush Bag (1000units/500ml NS) 2 bags added to field was administered by Blade Elkins MD; used for procedure; 10:29:54 0.9% NaCl 100 ml/hr I.V. was administered by Sera Cooper RN; Per physician; 10:30:39 Baseline sample Acquired. 10:30:43 Rhythm: sinus bradycardia 10:30:45 Full Disclosure recording started 10:30:46 Pre-procedure instructions explained to patient. 10:30:47 Pre-op teaching completed and patient verbalized understanding. 10:30:48 Family in waiting room. 10:30:49 Patient NPO since Midnight. 10:31:03 Patient allergic to Other allergyiodine 10:31:06 Is the patient allergic to Iodine/contrast media? Yes. 10:31:07 Was the patient premedicated? Yes 10:31:08 Is patient on blood thinner?Yes 10:31:10 ACC The patient was administered the following blood thiners within the last 24 hours: ACCPlavix 10:31:17 Patient diabetic? No. 10:31:19 Previous problem with sedation/anesthesia? No ? 10:31:21 Snore? Yes 10:31:23 Sleep apnea? No 10:31:24 Opens mouth fully? No 10:31:28 Sticks out tongue? Yes 10:31:31 Airway obstruction? No ? 10:31:33 Dentures? No ? 10:31:37 Pre procedure: right dorsailis pedis pulse 1+ Palpable, but thready & weak; easily obliterated 10:31:40 Pre procedure: left dorsailis pedis pulse 1+ Palpable, but thready & weak; easily obliterated 10:31:43 Patient pain scale 0/10 ?. 10:31:48 IV patent on arrival in left forearm with 0.9% NaCl at [facility]. 10:34:52 Lab Result : BUN 20 mg/dl 10::52 Lab Result : Creatinine 1.4 mg/dl 10:34:56 Lab results completed and on chart. 10:35:00 Right groin area was prepped with chlora-prep and draped in sterile fashion 10:35:01 Alarms reviewed by R. N. 10:35: Sharps counted by scrub and verified by R.N. 10:41:03 Physician arrived 10:41:03 --------ALL STOP TIME OUT------ 10:41:04 Final Timeout: patient, procedure, and site verified with staff and physician. All members of the team are in agreement. 10:41:06 Right groin site verified by team. 10:41:08 Physical assessment completed. ASA score P 2 - A patient with mild systemic disease as per Blade Elkins MD. 10:41:12 Sedation plan: IV Moderate Sedation Medication:Versed, Fentanyl 10:42:41 Zero performed for pressure channel P1 10:43:02 Use device set TAUTH PCI 10:43:04 INFLATOR Merit BasixCompak Inflation Kit (RS1231) opened to sterile field. 10:43:05 Terumo 6Fr [place] Sheath opened to sterile field. 10:43:09 Robles Whisper J 300cm 0.014 guide wire opened to sterile field. 10:43:16 EXOSEAL 6Fr (EX600) opened to sterile field. 10:43:23 Fentanyl 50 mcg I.V. was administered by Sera Cooper RN; for sedation; 10:43:26 Use device set Acist 10:43:28 ACIST Manifold (29636) opened to sterile field. 10:43:29 ACIST Hand Control (20703) opened to sterile field. 10:43:31 ACIST Syringe (61599) opened to sterile field. 10:43:35 Versed 1 mg I.V. was administered by Sera Cooper RN; for sedation; 10:44:05 GUIDE 6FR MB 1 catheter (LA6MB1) opened to sterile field. 10:44:57 Procedure started. 10:45:16 Versed 1 mg I.V. was administered by Sera Cooper RN; for sedation; 10:45:25 Fentanyl 50 mcg I.V. was administered by Sera Cooper RN; for sedation; 10:46:06 Local anesthetic to right femoral artery with Lidocaine 2% by Blade Elkins MD.INITIAL ACCESS ONLY 10:47:47 A 6 Fr Short sheath was inserted into the Right Femoral artery 10:47:54 6 Fr mb 1 guide catheter was inserted over the wire 10:48:12 whisper wire advanced. 10:49:14 Fentanyl 50 mcg I.V. was administered by Sera Cooper RN; for sedation; 10:49:24 Heparin Bolus 4000 units I.V. was administered by Sera Cooper RN; for anticoagulation; verified by dr. elkins 10:49:24 Versed 1 mg I.V. was administered by Sera Cooper RN; for sedation; 10:52:30 Fentanyl 50 mcg I.V. was administered by Sera Cooper RN; for sedation; 10:52:38 Versed 1.5 mg I.V. was administered by Sera Cooper RN; for sedation; 10:52:57 Inflation Number: 1 A JEAN PAUL OTW 2.5 x 26 stent ([id number]) was prepped and advanced across the Undefined2. The stent was deployed at 19 LINDEN for 0:10 (min:sec). 10:54:45 Stent catheter was removed intact over wire. 10:54:45 Wire removed. 10:54:46 Guide catheter removed. 10:54:55 Sheath removed intact; hemostasis achieved with Exoseal to the Right Femoral artery. 10:54:56 Procedure ended.(Physican Out) 10:55:16 Fluoroscopy time 02.90 minutes. 10:55:21 Fluoroscopy dose: 453 mGy 10:55:21 Flurop Dose total: 453 10:55:25 Contrast amount:Isovue 300 49ml. 10:55:27 Sharps counted by scrub and verified by R.N. 10:55:29 Insertion/operative site no bleeding no hematoma. 10:55:32 Post-op/insertion site Right Femoral artery dressed using a 4 x 4 and Tegaderm. 10:55:35 Post right femoral artery:stable 10:55:36 Post Procedure Pulses reassessed and unchanged 10:56:02 Post procedure rhythm: unchanged. 10:56:05 Estimated blood loss: 5 ml 10:56:10 Post procedure instruction explained to patient.Patient verbalizes understanding. 10:56:11 Patient needs reinforcement of post procedure teaching. 10:56:36 Procedure and supply charges have been captured, reviewed, submitted and are correct. 10:56:40 Procedure Complication : No complications 10:56:43 Vital chart was stopped 10:56:44 See physician's report for complete and final results. 10:56:50 Report given to Pre/Post Procedure Room. 10:56:53 Patient transfered to Pre/Post Procedure Room with Stretcher. 10:56:56 Procedure ended. 10:56:56 Full Disclosure recording stopped 10:57:03 ACC-PCI Only Patient was given prescriptions, or instructed by Blade Elkins MD to start/continue the following medications upon discharge: Plavix 10:57:05 End room use (Document Last) Intervention Summary Intervention Notes Time ActionType Lesion and Equipment Action# Pressure Duration Attributes Used 10:52:[address] Place stent Undefined2 JEAN PAUL OTW 2.5 1 19 00:10 x 26 stent ([id number]) Device Usage Item Name Manufacture Quantity Catalog Hospital Part Current Minim al Lot# / Number Charge Number Stock Stock Serial# Code INFLATOR [facility] 1 [id number] 085432 210223 15 [facility] BasixCompak Inflation Kit (NO3236) Terumo 6Fr Terumo 1 [id number] 245847 032297 030161 40 [place] Sheath Robles Robles 1 [id number] 092206 543341 429523 5 Whisper J Vascular 300cm 0.014 guide wire EXOSEAL 6Fr Cardinal 1 EX600 798361 493423 622759 10 (EX600) Health ACIST Acist 1 56808 466283 647742 009128 5 Manifold Medical (05273) Systems Inc ACIST Hand Acist 1 22821 280757 880965 290412 5 Control Medical (71769) Systems Inc ACIST Syringe Acist 1 77844 045608 437962 989785 20 (00528) Medical Systems Inc GUIDE 6FR MB Medtronic 1 LA6MB1 347069 07077 743702 1 1 catheter (LA6MB1) JEAN PAUL OTW 2.5 Medtronic 1 [id number] 917382 27968 338362 5 [id number] x 26 stent ([id number]) Signature Audit Rush Stage Time Signature Unsigned Intra-Procedure 01/09/2017 Nelsy Hough 10:57:36 AM RT(R) Signatures Monitor : Nelsy Hough RT Signature : Date : Time : [facility] [address] [place] [address]
[2017-01-09 09:29] VITALS: BP 182/75; Ht 177.8 cm; Wt 84.1 kg
[2017-01-09 10:06] LABS: ANION GAP 12.9 mmol/L (8-16); CALCIUM 8.7 mg/dL (8.5-10.1); CARBON DIOXIDE 25.2 mmol/L (21.0-32.0); CREATININE - SERUM 1.4 mg/dL (0.6-1.3); POTASSIUM - SERUM 4.1 mmol/L (3.5-5.1)
[2017-01-09 10:27] LABS: BASOPHILS 0.1 % (0-2); EOSINOPHILS 0.1 % (0-7); HEMATOCRIT 45.8 % (42.0-54.0); IMMATURE GRANULOCYTES 0.5 % (0-5); LYMPHOCYTES 9.3 % (15-50); MCH 31.1 pg (26.0-34.0); MCHC 34.9 g/dL (31.0-37.0); MCV 88.9 fL (80.0-100.0); MEAN PLATELET VOLUME 10.5 fL (7.4-10.4); MONOCYTES 4.3 % (2-11); NEUTROPHILS 85.7 % (40-80); PLATELET COUNT 191 10x3/uL (130-400); RBC 5.15 10x6/uL (4.20-6.10); RDW 12.5 % (11.5-14.5); WBC 8.4 10x3/uL (4.8-10.8)
--- NOTE | 2017-01-09 11:29 | NUR ---
1125 LYING FLAT, ROOM AIR WITH NO RESP DISTRESS. SINUS YANETH, RATE 46 W NO C/O CHEST PAIN. PULSES PALP X 4. R GROIN 6F EXOSEAL C/D/I W NOHEMATOMA OR BLEEDING. CAP REFILL BRISK X 4. FAMILY AT SIDE.
--- NOTE | 2017-01-09 12:34 | NUR ---
VOIDED 300CC VIA URINAL. R GROIN REMAINS C/D/I. EATING TURKEY SANDWICH AND DRINKING SODA WITH NO C/O NAUSEA. MOM AT BEDSIDE.
--- NOTE | 2017-01-09 14:22 | NUR ---
1400 ELEAVED HOB, WILL MONITOR R GROIN FOR BLEEDING. ELAYNE Zambrano BEDSIDE.
--- NOTE | 2017-01-09 14:50 | NUR ---
1430 PIV REMOVED WITH BANDAID APPLIED. 1445 UP TO BEDSIDE TO DRESS. VOIDED 200CC VIA URINAL. D/C INSTRUCTIONS DISCUSSED WITH PATIENT AND FAMILY AT BEDSIDE. WHEELED OUT VIA WHEELCHAIR BY CATH TEAM.
--- NOTE | 2017-01-17 12:17 | OP ---
PATIENT NAME: BRANDI PHILLIPS MEDICAL RECORD: [id number] :50 LOCATION:D.CAT ADMISSION DATE: SURGEON: DALLAS DEWITT MD DATE OF OPERATION: 01/09/2017 PROCEDURES: 1. PTCA and stent to RCA through vein graft. 2. Selective coronary and vein graft angiography. INDICATIONS: Angina and coronary artery disease. PROCEDURE IN DETAIL: After informed consent was obtained and after detailed explanation of risks and benefits as well as alternative therapies, the patient elected to proceed with angiogram and angioplasty. The right femoral area was prepped and draped in normal sterile fashion. Right femoral artery was cannulated via modified Seldinger technique with placement of a 6-Singaporean sheath. All catheters were exchanged through the sheath. FINDINGS: The right coronary has 85 plus percent stenosis after the patent vein graft. This was addressed with a 2.5 x 26-mm Reynold stent, taken to 19 atmospheres. Result was 0% residual stenosis. OVERALL IMPRESSION: Successful PTCA and stent of the RCA through the patent vein graft going from 85% initial stenosis to 0% residual. TRANSINT:[id number] Voice Confirmation ID: [id number] DOCUMENT ID: [id number] DALLAS DEWITT MD at 1217 CC: [id number] DICTATION DATE: 01/09/17 1059 AUTO JOB ESTIMATOR: 01/09/17 1205 DEP CLI 01/09/17 [id number] [place] [address]
== END 2017-01-09 14:51 | disposition home or self-care (01) ==
LOC: D.CATH 08:30
PROVIDERS: Internal Medicine Interventional Cardiology
DX: I25.110 Atherosclerotic heart disease of native coronary artery with unstable angina pectoris (principal); Z95.1 Presence of aortocoronary bypass graft; I10 Essential (primary) hypertension; E78.5 Hyperlipidemia, unspecified; Z95.5 Presence of coronary angioplasty implant and graft; Z01.812 Encounter for preprocedural laboratory examination
CPT/HCPCS: 93459; C9600

== ENCOUNTER → 2018-02-27 12:08 | Outpatient (CLI) | payer MEDICARE, OTHER ==
[2017-01-09 09:29] VITALS: BMI 26.6
== END | disposition home or self-care (01) ==
LOC: D.CT 12:08
DX: I70.213 Atherosclerosis of native arteries of extremities with intermittent claudication, bilateral legs (principal)

== ENCOUNTER → 2018-03-05 08:31 | Outpatient (CLI) | payer MEDICARE, OTHER ==
[2017-01-09 09:29] VITALS: BMI 26.6
[2018-03-05 09:25] LABS: CREATININE - SERUM 1.4 mg/dL (0.6-1.3)
== END | disposition home or self-care (01) ==
LOC: D.CT 08:31
PROVIDERS: Internal Medicine Cardiovascular Disease
DX: I70.213 Atherosclerosis of native arteries of extremities with intermittent claudication, bilateral legs (principal)

== ENCOUNTER → 2018-08-20 08:25 | Outpatient (CLI) | payer MEDICARE, OTHER ==
[2017-01-09 09:29] VITALS: BMI 26.6
== END | disposition home or self-care (01) ==
LOC: D.US 08:25
PROVIDERS: ATTEND Internal Medicine Cardiovascular Disease
DX: I70.203 Unspecified atherosclerosis of native arteries of extremities, bilateral legs (principal)

== ENCOUNTER 2018-09-12 10:37 | Outpatient (CLI) | payer MEDICARE, OTHER ==
[~2018-09-12] VITALS: Ht 177.8 cm; Wt 82.7 kg
--- NOTE | ~2018-09-12 | HEMODYNAMI ---
PATIENT:BRANDI PHILLIPS MEDICAL RECORD: [id number] : 50 LOCATION:[facility] ADMISSION DATE: 09/12/18 Generatedon:09/12/201814:43 Patient name: BRANDI PHILLIPS Patient #: [id number] SSN: : 1950 Date of study: 09/12/2018 Page: Of Hemodynamic Procedure Report Patient Data Patient Demographics Procedure consent was obtained First Name: BRANDI Gender: Male Last Name: JACQUELINE : 1950 [facility] Initial: R Age: 67 year(s) Patient #: [id number] Race: Unknown Additional ID: [id number] Contact details Address: [facility] [place] State: [place] City: [place] Zip code: [address] Past Medical History Allergies Allergen Reaction Date Comments Reported IV contrast dye 01/02/2017 Other allergy 01/09/2017 iodine Other allergy 09/12/2018 iodine Admission Admission Data Admission Date: 09/12/2018 Admission Time: 10:37 Procedure Procedure Types Cath Procedure Peripheral Cath Diagnostic Procedure Abd/Extremity Extremities Bilat Lower Extremity Procedure Description Procedure Date Procedure Date: 09/12/2018 Procedure Start Time: 13:25 Procedure End Time: 14:30 Procedure Staff Name Function Giacomo Mcnally RT Scrub Maverick Brown MD Additional personnel Giuliano Stearns MD Performing Physician Brynn Hurley RN Nurse Amy Noble RN Nurse LYNN FRANCES RT Monitor Procedure Data Cath Procedure Fluoroscopy Diagnostic fluoroscopy Total fluoroscopy Time: time: 12.9 min 12.9 min Contrast Material Contrast Material Type Amount (ml) Isovue 300 105 Entry Location Entry Primary Successful Side Size Upsize Upsize Entry Closure Succes sful Closure Location (Fr) 1 (Fr) 2 (Fr) Remarks Device Remarks Femoral Right 5 Fr 6 Fr 6 Fr Exoseal artery Long Short Procedure Medications Medication Administration Route Dosage Heparin Flush Bag added to field 3 bags (1000units/500ml NS) Lidocaine 1% 20 Heparin Bolus I.V. 5000 units Hemodynamics Rest Pre Cath Intra NCS Post Cath Vital Signs Time NIBP Rhythm Pain Sedation (mmHg) Status Level 13:17:53 No Cuff NSR 0 (11) , 10(A) No pain Medications Time Medication Route Dose Verified Delivered Reason Notes Effec tiveness by by 13:05:40 Heparin Flush added 3 Giuliano Giuliano used for Bag to bags Jinny Stearns MD procedure (1000units/500ml field NS) 13:05:56 Lidocaine 1% 20ml Giuliano Giuliano used for vial Jinny Stearns MD procedure MD 13:54:43 Heparin Bolus I.V. 5000 Giuliano Amy used for units Real Stearns RN procedure MD Procedure Log Time Note 12:33:00 Giacomo Uli RT (R) (CV) sent for patient. Start room use. 12:33:01 Time tracking: Regular hours (M-F 7:00 - 5:00) 12:33:08 Plan of Care:Hemodynamics will remain stable., Cardiac rhythm will remain stable., Comfort level will be maintained., Respiratory function will remain adequate., Patient/ family verbilizes understanding of procedure., Procedure tolerated without complication., Recovers from procedure without complications.. 12:33:15 Patient received from Outpatients to IR Alert and oriented. Tansferred to table in Supine position. 12:33:17 Signed procedure consent form obtained from patient. 12:33:18 Warm blankets applied, and juan hugger turned on for patient comfort. 12:33:19 Correct patient and procedure confirmed by team. 12:33:20 ECG and BP/O2 sat monitors applied to patient. 12:33:22 - 12:33:31 H&P Date Dictated: 09/12/2018 H&P Addendum completed by physician on day of procedure. (MUST COMPLETE FOR ALL OUTPATIENTS). 12:33:33 Pre-op teaching completed and patient verbalized understanding. 12:33:33 Pre-procedure instructions explained to patient. 12:33:41 Family in patients room. 12:33:43 Patient NPO since Midnight. 12:33:52 ---- See pre-sedation anethsthesia assessment.---- 12:34:49 Patient allergic to Other allergyiodine 12:34:52 Is the patient allergic to Iodine/contrast media? Yes. 12:34:53 Was the patient premedicated? Yes 12:34:54 Is patient on blood thinner?Yes 12:35:13 ACC The patient was administered the following blood thiners within the last 24 hours: ACCAspirin, ACCPlavix 12:35:18 Patient diabetic? Yes. 12:35:19 If diabetic: On Metformin? No 12:36:56 IV patent on arrival in left hand with [facility] at [facility]. 12:37:21 - 12:40:22 Pre procedure: right dorsailis pedis pulse Doppler 12:40:30 Pre procedure: left dorsailis pedis pulse Doppler 12:40:32 Pre procedure: right posterior tibial pulse Doppler 12:40:42 Pre procedure: left posterior tibial pulse Doppler 12:41:01 Pre procedure: right femoral pulse Doppler 12:41:05 Pre procedure: left femoral pulse Doppler 12:41:14 - 13:03:03 Right groin area was prepped with chlora-prep and draped in sterile fashion 13:03:14 Left Pedal was prepped with chlora-prep and draped in sterile fashion. 13:03:28 Use device set IR Diagnostic 13:03:31 Tegaderm 4 x 4 (1626W) opened to sterile field. 13:03:33 Bag Decanter (2002S) opened to sterile field. 13:03:33 Sterile Angiographic Pack opened to sterile field. 13:03:34 ACIST Manifold (88834) opened to sterile field. 13:03:35 ACIST Syringe (03837) opened to sterile field. 13:03:35 ACIST Hand Control (82146) opened to sterile field. 13:03:36 MICROPUNCTURE 4FR Cook (G44404) opened to sterile field. 13:03:37 DOC .035 wire (L84869) opened to sterile field. 13:03:38 TUBING Contrast Injection High Pressure (IXK035X) opened to sterile field. 13:03:39 BATES 260 wire (P90724) opened to sterile field. 13:03:40 SHEATH 5FR [place] (KMV435) opened to sterile field. 13:05:40 Heparin Flush Bag (1000units/500ml NS) 3 bags added to field was administered by Giuliano Stearns MD; used for procedure; 13:05:56 Lidocaine 1% 20ml vial was administered by Giuliano Stearns MD; used for procedure; 13:09:39 GLIDE CATHETER 5FR ANGLED 65cm (CG507) opened to sterile field. 13:09:50 TORQUE DEVICE PLASTIC .038 ( TD01) opened to sterile field. 13:10:16 GLIDE WIRE ANGLE 180cm (DZ1392) opened to sterile field. 13:17:59 Physician arrived 13:18:01 Sharps counted by scrub and verified by R.N. 13:19:25 --------ALL STOP TIME OUT------ 13:19:26 Final Timeout: patient, procedure, and site verified with staff and physician. All members of the team are in agreement. 13:19:40 Right groin and left pedal site verified by team. 13:19:52 Fire Safety Assessment: A--An alcohol-based skin anteseptic being used preoperatively., C--Open oxygen or nitrous oxide is being used. 13:20:09 3b) 30-44 Moderately reduced kidney function. 13:20:18 Procedure started. 13:25:00 Local anesthetic to right femoral artery with Lidocaine 1% by Giuliano Stearns MD.INITIAL ACCESS ONLY 13:25:23 Access obtained with 4Fr micropunture. 13:30:15 Cordis 5Fr BRITE TIP 11cm sheath opened to sterile field. 13:30:18 A 5 Fr sheath was inserted into the Right Femoral artery 13:30:30 AMPLATZ Super Stiff 75cm wire ([id number]) opened to sterile field. 13:31:59 Angiodynamics Omniflush 5Fr 65cm ([id number]) opened to sterile field. 13:45:21 GLIDE WIRE ANGLE 260cm (ZF4138) opened to sterile field. 13:48:51 SHEATH 6FR Destination (RSR01) opened to sterile field. 13:49:00 Sheath upsized to a 6 Fr Long. 13:49:29 CHOICE PT Extra Support J 300cm guide wire ([id number]) opened to steril e field. 13:54:25 [place] SS-C Atherectomy catheter (THSSSC)r opened to sterile field. 13:54:43 Heparin Bolus 5000 units I.V. was administered by Amy Noble RN; used for procedure; 14:04:23 Inflate balloon Inflation number: 1 A IN.PACT Admiral 5 x 40 x 130 DCB Balloon ([id number]) was prepped and advanced across the Undefined1 , then inflated. 14:04:47 INFLATOR BasixTOUCH (NX7851) opened to sterile field. 14:11:44 EXOSEAL 6Fr (EX600) opened to sterile field. 14:12:27 SHEATH 6FR [place] (QHM918) opened to sterile field. 14:18:23 Sheath upsized to a 6 Fr Short. 14:19:49 Contrast amount:Isovue 300 105ml. 14:21:32 Sheath removed intact; hemostasis achieved with Exoseal to the Right Femoral artery. 14:21:45 Procedure ended.(Physican Out) 14:23:18 Fluoroscopy time 12.90 minutes. 14:23:22 Dose Area Product 549 mGy/cm. 14:23:53 Insertion/operative site no bleeding no hematoma. 14:24:32 Procedure and supply charges have been captured, reviewed, submitted an d are correct. 14:29:37 Post right femoral artery:stable 14:30:24 Patient transfered to Recovery Room with Stretcher. 14:30:35 Full Disclosure recording stopped 14:30:35 Procedure ended. Intervention Summary Intervention Notes Time ActionType Lesion and Equipment Used Action# Pressure Duration Attributes 14:04:23 Inflate Undefined1 IN.PACT 1 0 00:00 balloon Admiral 5 x 40 x 130 DCB Balloon ([id number]) Device Usage Item Name Manufacture Quantity Catalog Number Hospital Part Current M inimal Lot# / Charge Number Stock Stock Serial# Code Tegaderm 4 x 4 3M 1 1626W [id number] [id number] 518841 5 (1626W) Sterile Cardinal 1 [id number] 970716 109493 5 Angiographic Health Pack Bag Decanter Microtek 1 2001S 671431 20703 459973 5 () Medical Inc. ACIST Manifold Acist Medical 1 93727 237498 692452 867223 5 (10611) Systems Inc ACIST Hand Acist Medical 1 93178 860886 644363 304759 5 Control Systems Inc (41109) ACIST Syringe Acist Medical 1 45989 710531 635863 268137 2 0 (45412) Systems Inc MICROPUNCTURE [facility] 1 Z13587 727257 667843 350510 5 4FR E-TEK Dynamics (B93641) DOC .035 wire [facility] 1 I75985 949852 298823 5 (F31220) TUBING [facility] 1 SMM638W 992399 503799 279184 5 Contrast Injection High Pressure (HAW074O) BATES 260 wire [facility] 1 Z78095 325094 19322 306874 5 (W43309) SHEATH 5FR Terumo 1 BLK930 755200 413455 010222 5 [place] (ZLF825) GLIDE CATHETER Terumo 1 CG507 706461 084366 5 5FR ANGLED 65cm (CG507) TORQUE DEVICE [place] 1 TD01 354009 720092 083663 5 PLASTIC .038 ( Scientific TD01) GLIDE WIRE Terumo 1 RJ1326 775143 210100 741673 5 ANGLE 180cm (GT2446) Cordis 5Fr Cardinal 1 [id number] 558192 097060 5 BRITE TIP 11cm Health sheath AMPLATZ Super [place] 1 [id number] 312775 101334 915591 5 [id number] Stiff 75cm Scientific wire ([id number]) Angiodynamics Angiodynamics 1 85900811 564940 649911 680202 5 Omniflush 5Fr 65cm (57939451) GLIDE WIRE Terumo 1 KM5803 649213 843278 580909 5 ANGLE 260cm (QF2766) SHEATH 6FR Terumo 1 RSR01 701728 92950 090454 5 Destination (RSR01) CHOICE PT [place] 1 [id number] 24080310 993240 5 [id number] Extra Support Scientific J 300cm guide wire ([id number]) [place] SS-C Medtronic 1 THS-SS-C 817719 799078 5 Atherectomy catheter (THSSSC)r IN.PACT Medtronic 1 [id number] 719222 823564 741692 5 Admiral 5 x 40 x 130 DCB Balloon ([id number]) INFLATOR PowerInbox Medical 1 KH8381 032962 402825 204644 5 BasixTOUCH (TX4745) EXOSEAL 6Fr Cardinal 1 EX600 908663 830554 432125 1 0 (EX600) Health SHEATH 6FR Terumo 1 AET902 706306 615222 371750 4 0 Upton (POO761) Signature Audit [place] Stage Time Signature Unsigned Intra-Procedure 09/12/2018 LYNN FRANCES RT LYNN FRANCES RT (R) 2:35:35 PM (R) 09/12/2018 2:41:30 PM Intra-Procedure 09/12/2018 LYNN FRANCES RT 2:43:26 PM (R) Signatures Monitor : LYNN FRANCES RT Signature : Date : Time : [facility] [address] [place] [address]
[2018-09-12 11:08] LABS: HEMATOCRIT 44.3 % (42.0-54.0); HEMOGLOBIN 15.8 g/dL (13.5-17.5); LYMPHOCYTES 12.3 % (15-50); MCH 31.4 pg (26.0-34.0); MCHC 35.7 g/dL (31.0-37.0); MCV 88.1 fL (80.0-100.0); MEAN PLATELET VOLUME 9.6 fL (7.4-10.4); NEUTROPHILS 86.7 % (40-80); PLATELET COUNT 189 10x3/uL (130-400); RBC 5.03 10x6/uL (4.20-6.10); RDW 12.5 % (11.5-14.5); WBC 5.9 10x3/uL (4.8-10.8)
[2018-09-12 11:15] LABS: APTT 30.6 SECONDS (22.8-39.4); INR 1.05 (0.85-1.17); PROTIME 13.2 SECONDS (11.6-15.0)
[2018-09-12 11:18] LABS: ANION GAP 15.4 mmol/L (8-16); CALCIUM 8.9 mg/dL (8.5-10.1); CARBON DIOXIDE 24.7 mmol/L (21.0-32.0); CREATININE - SERUM 1.7 mg/dL (0.6-1.3); POTASSIUM - SERUM 5.1 mmol/L (3.5-5.1)
[2018-09-12] MEDS ORDERED: VITAMIN D31000 UNIT PO (11:31)
[2018-09-12] MEDS ORDERED: ASCORBIC ACID500 MG (11:31)
[2018-09-12] MEDS ORDERED: POTASSIUM99 M1 PO (11:32)
[2018-09-12] MEDS ORDERED: BENADRYL50 MG PO (11:33)
[2018-09-12 11:40] VITALS: BP 165/73; Ht 177.8 cm; Wt 82.7 kg
--- NOTE | 2018-09-12 16:07 | NUR ---
1535-REC'D FROM RR,AWAKE AND ALERT. DENIES COMPLAINTS, DRESSING TO RIGHT GROIN CDI.IV NS 50ML/HR.VSS.
--- NOTE | 2018-09-12 16:56 | NUR ---
1645-RIGHT GROIN DRESSING CDI. VSS. DENIES COMPLAINTS. IV NS @ 100ML/HR.TOLERATED FINGER FOOD DIET.
--- NOTE | 2018-09-12 18:05 | NUR ---
1505-ABLE TO SIT UP AND DRESS WITHOUT COMPLICATIONS.VSS.DENIES COMPLAINTS. REMOVED IV FROM LEFT HAND WITH CATH INTACT DISPOSED INTO SHARPS. REVIEWED DISCHARGE INSTRUCTIONS,VERBALIZED UNDERSTANDING. DISCHARGED HOME VIA W/C WITH FAMILY DRIVING HOME.
== END 2018-09-12 18:10 | disposition home or self-care (01) ==
LOC: D.SP 10:37 → D.RAD 13:00 → D.SP 18:10
PROVIDERS: ATTEND General Practice
DX: I70.213 Atherosclerosis of native arteries of extremities with intermittent claudication, bilateral legs (principal); Z01.812 Encounter for preprocedural laboratory examination

== ENCOUNTER → 2019-06-13 13:59 | Outpatient (CLI) | payer MEDICARE, OTHER ==
[2018-09-12 11:40] VITALS: BMI 26.1
[~2019-06-13 13:59] MED LIST changes: +ASCORBIC ACID500 MG; +BENADRYL50 MG PO; +POTASSIUM99 M1 PO
== END | disposition home or self-care (01) ==
LOC: D.US 13:59
PROVIDERS: ATTEND General Practice
DX: I70.201 Unspecified atherosclerosis of native arteries of extremities, right leg (principal)

== ENCOUNTER → 2019-10-25 10:31 | Outpatient (CLI) | payer MEDICARE, OTHER ==
[2018-09-12 11:40] VITALS: BMI 26.1
== END | disposition home or self-care (01) ==
LOC: D.CT 10:31
PROVIDERS: ATTEND Family Medicine
DX: M54.6 Pain in thoracic spine (principal)

== ENCOUNTER 2020-07-04 10:54 | Inpatient (IN) | payer MEDICARE, OTHER ==
[~2020-07-04] VITALS: Ht 177.8 cm; Wt 77.3 kg
--- NOTE | ~2020-07-04 | HEMODYNAMI ---
PATIENT:BRANDI PHILLIPS MEDICAL RECORD: [id number] : 50 [facility] ADMISSION DATE: 07/04/20 Generatedon:19:22 Patient name: BRANDI PHILLIPS Patient #: [id number] SSN: [id number] : 1950 Date of study: 07/06/2020 Page: Of Hemodynamic Procedure Report Patient Data Patient Demographics Procedure consent was obtained First Name: BRANDI Gender: Male Last Name: JACQUELINE : 1950 [facility] Initial: R Age: 69 year(s) Patient #: [id number] Race: SSN: [id number] Additional ID: [id number] Contact details Address: [address] State: [place] City: [place] Zip code: [address] Past Medical History Allergies Allergen Reaction Date Comments Reported IV contrast dye 01/02/2017 Other allergy 01/09/2017 iodine Other allergy 09/12/2018 iodine Other allergy 07/06/2020 CONTRAST Admission Admission Data Admission Date: 07/04/2020 Admission Time: 15:07 Arrival Date: 07/06/2020 Arrival Time: 0:00 Admit Source: Other Insurance Payor: Medicare Room #: D.2138 [facility] #: [id number] Height (in.): 70 BSA: 1.95 (m2) Height (cm.): 177.8 BMI: 24.44 (kg/m2) Weight (lbs.): 170.35 Weight (kg.): 77.27 Lab Results Lab Result Date: 07/06/2020 Lab Result Time: 0:00 Biochemistry Name Units Result Min Max BUN mg/dl 37 --(----)-* 7 18 Creatinine mg/dl 1.4 --(----)*- 0.6 1.3 eGFR ml/min 53 *-(----)-- 90 120 NONAFRICAN CBC Name Units Result Min Max Hematocrit % 38.8 *-(----)-- 42 54 Hemoglobin g/dl 13.5 --(*---)-- 13.5 17.5 Procedure Procedure Types Cath Procedure Diagnostic Procedure [facility] w/Coronaries w/Grafts Sedation Charges Moderate Sedation 10-24 minutes Procedure Description Procedure Date Procedure Date: 07/06/2020 Procedure Start Time: 8:57 Procedure End Time: 9:20 Procedure Staff Name Function Ridge Gray MD Performing Physician Sadie Garces RN Nurse Davidson Dodson RN Nurse Tiffanie Trujillo RT Scrub Melyssa Stone RT Monitor Procedure Data Cath Procedure Fluoroscopy Diagnostic fluoroscopy Total fluoroscopy Time: 5.6 time: 5.6 min min Diagnostic fluoroscopy Total fluoroscopy dose: 675 dose: 675 mGy mGy Contrast Material Contrast Material Type Amount (ml) Isovue 370 97 Entry Location Entry Primary Successful Side Size Upsize Upsize Entry Closure Succes sful Closure Location (Fr) 1 (Fr) 2 (Fr) Remarks Device Remarks Femoral Right 5 Fr Exoseal artery Estimated blood loss: 5 ml Diagnostic catheters Device Type Used For End Catheter Placement MULTIPACK JL 4.0 5Fr Procedure catheter MULTIPACK 3DRC 5Fr Procedure catheter DIAGNOSTIC IM 5Fr Procedure catheter ([id number]) DIAGNOSTIC AR MOD 5Fr Procedure Catheter ([id number]) MULTIPACK Pigtail 5 Fr Procedure catheter Procedure Complications No complications Procedure Medications Medication Administration Route Dosage Oxygen etCO2 Nasal cannula 2 l/min Lidocaine 2% added to field 20 Heparin Flush Bag added to field 2 bags (1000units/500ml NS) 0.9% NaCl I.V. 100 ml/hr Versed I.V. 1 mg Fentanyl I.V. 50 mcg Versed I.V. 1 mg Fentanyl I.V. 50 mcg Versed I.V. 1 mg Versed I.V. 1 mg Hemodynamics Rest BSA: 1.95 (m2) HGB: 13.5 (g/dl) O2 Consumption: Estimated: 208.86 (ml/min) O2 Co nsumption indexed: Estimated:107.11 (ml/min/m) Heart Rate: 47 (bpm) Pressure Samples Time Site Value (mmHg) Purpose Heart Use Rate(bpm) 9:16 LV 171/30,28 Snapshot 51 Gradients Valve Time Site Site Mean SEP/DFP Peak To Heart Use 1 2 (mmHg) (sec/min) Peak Rate (mmHg) (bpm) Aortic 9:16 LV AO 48 Snapshots Pre Cath Intra NCS Post Cath Vital Signs Time Heart Resp SPO2 etCO2 NIBP (mmHg) Rhythm Pain Sedation Rate (ipm) (%) (mmHg) Status Level (bpm) 8:43:01 50 21 98 33.2 209/71(143) NSR 0 (11) 10(A) , No pain 8:47:39 50 13 97 26.4 188/65(151) NSR 0 (11) 10(A) , No pain 8:52:12 52 15 99 36.2 175/64(136) NSR 0 (11) 10(A) , No pain 8:57:41 50 21 98 30.2 180/66(133) NSR 0 (11) 10(A) , No pain 9:02:14 54 15 98 31.7 173/76(143) NSR 0 (11) 9(A) , No pain 9:06:48 49 18 98 25.6 168/68(115) NSR 0 (11) 9(A) , No pain 9:11:12 46 21 98 17.3 166/65(133) NSR 0 (11) 9(A) , No pain 9:15:45 65 18 98 28.6 164/62(132) NSR 0 (11) 9(A) , No pain 9:20:44 52 27 98 33.2 Measuring NSR 0 (11) 9(A) , No pain 9:21:11 46 14 98 36.3 173/62(121) NSR 0 (11) 9(A) , No pain Medications Time Medication Route Dose Verified Delivered Reason Notes Effe ctiveness by by 8:40:33 Oxygen etCO2 2 Ridge Sadie used for Nasal l/min St Giuliano Garces RN procedure cannula 8:40:41 Lidocaine 2% added 20ml Ridge Sabillon for local to vial [facility] anesthetic field MD KIMBLE 8:40:50 Heparin Flush added 2 Ridge Ridge used for Bag to bags [facility] procedure (1000units/500ml field MD KIMBLE NS) 8:41:01 0.9% NaCl I.V. 100 Ridge Noel Per ml/hr St Giuliano Garces RN physician 8:53:28 Versed I.V. 1 mg Ridge Felizie for St Giuliano Garces RN sedation 8:53:34 Fentanyl I.V. 50 Ridge Buffie for [facility] Garces RN sedation 8:58:39 Versed I.V. 1 mg Ridge Buffie for St Giuliano Garces RN sedation 8:58:44 Fentanyl I.V. 50 Ridge Buffie for mcg St Giuliano Garces RN sedation 9:03:19 Versed I.V. 1 mg Ridge Felizie for St Giuliano Garces RN sedation 9:10:32 Versed I.V. 1 mg Ridge Buffie for St Giuliano Garces RN sedation Procedure Log Time Note 8:13:48 Informed consent obtained and on chart 8:15:25 Lab Result : eGFR NONAFRICAN 53 ml/min 8:15:25 Lab Result : Creatinine 1.4 mg/dl 8:15:25 Lab Result : BUN 37 mg/dl 8:15:25 Lab Result : Hematocrit 38.8 % 8:15:25 Lab Result : Hemoglobin 13.5 g/dl 8:15:28 Arrival Date: 07/06/2020 12:00:00 AM 8:15:29 Admit Source: Other 8:15:32 Patient Height : 70 inches 8:15:36 Patient Weight : 170.35 lbs 8:15:41 Insurance Payor : Medicare 8:18:23 ACC Patient presents with Unstable Angina CCS Anginal Class 2--Slight limitation of ordinary activity. 8:18:25 Procedure Status Urgent Heart Cath (IP). 8:18:30 Time tracking: Regular hours (M-F 7:00 - 5:00) 8:18:36 Plan of Care:Hemodynamics will remain stable., Cardiac rhythm will remain stable., Comfort level will be maintained., Respiratory function will remain adequate., Patient/ family verbilizes understanding of procedure., Procedure tolerated without complication., Recovers from procedure without complications.. 8:18:53 H&P Date Dictated: 07/05/2020 Within 30 days and on chart.. 8:18:57 Lab results completed and on chart. 8:19:02 Stress Test: no; N/A ? 8:27:40 Sadie Garces RN sent for patient. Start room use. 8:28:05 Risk of Mortality: 0.1 8:28:08 Risk of blood transfusion: 0.1 8:28:10 Risk of JIE: 2.0 8:28:12 Alarms reviewed by R. N. 8:28:12 Sharps counted by scrub and verified by R.N. 8:28:15 Use device set Femoral Dx 8:33:40 Patient received from ICU to CCL 1 Alert and oriented. Tansferred to table in Supine position. 8:33:41 Warm blankets applied, and juan hugger turned on for patient comfort. 8:33:42 Correct patient and procedure confirmed by team. 8:33:43 ECG and BP/O2 sat monitors applied to patient. 8:33:59 Pre-procedure instructions explained to patient. 8:33:59 Pre-op teaching completed and patient verbalized understanding. 8:34:02 Family unavailable. 8:34:04 Patient NPO since Midnight. 8:34:33 Patient allergic to Other allergyCONTRAST 8:34:36 Is the patient allergic to Iodine/contrast media? Yes. 8:34:37 Was the patient premedicated? Yes 8:40:22 Vital chart was started 8:40:33 Oxygen 2 l/min etCO2 Nasal cannula was administered by Sadie Garces RN; used for procedure; Verbal order read back and verified. 8:40:41 Lidocaine 2% 20ml vial added to field was administered by Ridge Gray MD; for local anesthetic; Verbal order read back and verified. 8:40:50 Heparin Flush Bag (1000units/500ml NS) 2 bags added to field was administered by Ridge Gray MD; used for procedure; Verbal order read back and verified. 8:41:01 0.9% NaCl 100 ml/hr I.V. was administered by Sadie Garces RN; Per physician; Verbal order read back and verified. 8:51:06 Baseline sample Acquired. 8:51:10 Rhythm: sinus bradycardia 8:51:11 Full Disclosure recording started 8:51:15 Is patient on blood thinner?Yes 8:51:18 ACC The patient was administered the following blood thiners within the last 24 hours: ACCPlavix 8:51:20 Patient diabetic? Yes. 8:51:21 If diabetic: On Metformin? No 8:51:23 ----Pre-sedation anethsthesia assessment.---- 8:51:32 Previous problem with sedation/anesthesia? No ? 8:51:37 Snore? Yes 8:51:38 Sleep apnea? No 8:51:39 Deviated septum? No 8:51:42 Opens mouth fully? Yes 8:51:44 Sticks out tongue? Yes 8:51:46 Airway obstruction? No ? 8:51:48 Dentures? No ? 8:51:51 Pre procedure: right dorsailis pedis pulse 1+ Palpable, but thready & weak; easily obliterated 8:51:54 Patient pain scale 0/10 ?. 8:51:58 IV patent on arrival in left antecubital with 0.9% NaCl at [facility]. 8:52:03 Right groin area was prepped with chlora-prep and draped in sterile fashion 8:52:05 --------ALL STOP TIME OUT------ 8:52:06 Final Timeout: patient, procedure, and site verified with staff and physician. All members of the team are in agreement. 8:52:08 Right groin site verified by team. 8:52:11 Fire Safety Assessment: A--An alcohol-based skin anteseptic being used preoperatively., C--Open oxygen or nitrous oxide is being used., D--An ESU, laser, or fiber-optic light is being used. 8:52:19 Physical assessment completed. ASA score P 2 - A patient with mild systemic disease as per Ridge Gray MD. 8:52:39 3a) 45-59 Moderately reduced kidney function. 8:52:44 Maximum allowable contrast dose (3.7 X eGFR X 0.75)147 ml. 8:52:48 Sedation plan: IV Moderate Sedation Medication:Versed, Fentanyl 8:52:54 ACIST Syringe (37356) opened to sterile field. 8:52:56 Bag Decanter () opened to sterile field. 8:52:56 Medline Cath Pack ([id number]) opened to sterile field. 8:52:58 ACIST Hand Control (38919) opened to sterile field. 8:52:58 ACIST Manifold (49722) opened to sterile field. 8:53:01 DIAGNOSTIC Multipack 5Fr catheter set ([id number]) opened to sterile field. 8:53:01 Tegaderm 4 x 4 (1626W) opened to sterile field. 8:53:03 SHEATH 5FR [place] (UXI327) opened to sterile field. 8:53:04 EMERALD Guide Wire (088-121) opened to sterile field. 8:53:28 Versed 1 mg I.V. was administered by Sadie Garces RN; for sedation; Verbal order read back and verified. 8:53:34 Fentanyl 50 mcg I.V. was administered by Sadie Garces RN; for sedation; Verbal order read back and verified. 8:57:18 Procedure started. 8:57:39 Local anesthetic to right femoral artery with Lidocaine 2% by Ridge Gray MD.INITIAL ACCESS ONLY 8:58:39 Versed 1 mg I.V. was administered by Sadie Garces RN; for sedation; Verbal order read back and verified. 8:58:44 Fentanyl 50 mcg I.V. was administered by Sadie Garces RN; for sedation; Verbal order read back and verified. 9:01:35 GLIDE WIRE MERIT Angled 260cm ([id number]) opened to sterile field. 9:01:48 GLIDEWIRE USED FOR SHEATH INSERTION. 9:02:57 A 5 Fr sheath was inserted into the Right Femoral artery 9:03:19 Versed 1 mg I.V. was administered by Sadie Garces RN; for sedation; Verbal order read back and verified. 9:03:26 A MULTIPACK JL 4.0 5Fr catheter was advanced over the wire and used for Procedure. 9:04:26 LCA angiography performed. 9:04:28 Injector settings: Ml/sec: 3, Volume: 6, 9:05:10 Catheter exchanged over wire. 9:05:58 A MULTIPACK 3DRC 5Fr catheter was advanced over the wire and used for Procedure. 9:07:03 RCA angiography performed. 9:07:06 Injector settings: Ml/sec: 3, Volume: 6, 9:09:36 UNABLE TO ENGAGE LIRA OR SVG TO RCA CHANGING CATHETERS. 9:10:32 Versed 1 mg I.V. was administered by Sadie Garces RN; for sedation; Verbal order read back and verified. 9:11:22 A DIAGNOSTIC IM 5Fr catheter ([id number]) was advanced over the wire and used for Procedure. 9:12:36 Catheter exchanged over wire. 9:12:50 LIRA to LAD angiography performed. 9:12:55 Catheter exchanged over wire. 9:13:05 A DIAGNOSTIC AR MOD 5Fr Catheter ([id number]) was advanced over the wire and used for Procedure. 9:13:45 SVG to RCA angiography performed. 9:13:53 Injector settings: Ml/sec: 3, Volume: 6, 9:14:08 Catheter exchanged over wire. 9:14:48 A MULTIPACK Pigtail 5 Fr catheter was advanced over the wire and used for Procedure. 9:14:51 LV gram done using GLASER 9:16:13 LV hemodynamics recorded. 9:16:17 Injector settings: Ml/sec: 10, Volume: 20, 9:16:27 EF : 30 % 9:16:42 Catheter removed. 9:16:45 EXOSEAL 5Fr (EX500) opened to sterile field. 9:16:55 Sheath removed intact; hemostasis achieved with Exoseal to the Right Femoral artery. 9:17:05 Fluoroscopy time 05.60 minutes. 9:17:09 Fluoroscopy dose: 675 mGy 9:17:09 Flurop Dose total: 675 9:17:14 Dose Area Product 09448 mGy/cm. 9:17:17 Contrast amount:Isovue 370 97ml. 9:17:20 Maximum allowable dose exceeded? No. 9:17:21 Sharps counted by scrub and verified by R.N. 9:17:49 Procedure ended.(Physican Out) 9:17:57 Post-op/insertion site Right Femoral artery dressed using a 4 x 4 and Tegaderm. 9:18:01 Post right femoral artery:stable, soft, clean and dry 9:18:03 Post Procedure Pulses reassessed and unchanged 9:18:07 Post procedure: right dorsailis pedis pulse 1+ Palpable, but thready & weak; easily obliterated. 9:18:09 Post-procedure physical assessment completed. ASA score P 2 - A patient with mild systemic disease as per Ridge Gray MD. 9:18:12 Post procedure rhythm: unchanged. 9:18:15 Estimated blood loss: 5 ml 9:18:16 Post procedure instruction explained to patient.Patient verbalizes understanding. 9:18:17 Patient needs reinforcement of post procedure teaching. 9:18:44 Procedure type changed to Cath procedure, Diagnostic procedure, LHC, LHC w/Coronaries w/Grafts, Sedation Charges, Moderate Sedation 10-24 minutes 9:19:32 Procedure and supply charges have been captured, reviewed, submitted and are correct. 9:19:42 Procedure Complication : No complications 9:19:49 [facility] Findings: mild to moderate CAD (<70%) 9:19:51 Operative report dictated upon procedure completion. 9:19:51 See physician's report for complete and final results. 9:19:55 Report given to ICU. 9:19:59 Patient transfered to ICU with Bed. 9:20:02 Procedure ended. 9:20:02 Full Disclosure recording stopped 9:20:30 End room use (Document Last) 9:20:46 End room use (Document Last) 9:21:55 End room use (Document Last) 9:22:46 Vital chart was stopped Device Usage Item Name Manufacture Quantity Catalog Number Hospital Part Current M inimal Lot# / Charge Number Stock Stock Serial# Code ACIST Syringe Acist 1 14817 607850 668038 827609 2 0 (36071) [employer] Inc Bag Decanter Microtek 1 2001S 314044 40851 267679 5 () Medical Inc. Medline Cath Medline 1 [id number] 035039 02268 660651 5 Pack ([id number]) ACIST Hand Acist 1 36428 878826 614463 951235 5 Control (41838) [employer] Inc ACIST Manifold Acist 1 90813 558467 798672 150919 5 (59210) Medical Systems Inc DIAGNOSTIC Cardinal 1 [id number] 464055 55633 591839 3 0 Multipack 5Fr Health catheter set (VD8216) Tegaderm 4 x 4 3M 1 1626W 861612 874148 071284 5 (1626W) SHEATH 5FR Terumo 1 [id number] 887194 782644 935482 5 [place] ([id number]) EMERALD Guide Cardinal 1 502-455 739258 599391 158808 5 Wire (502-455) Health GLIDE WIRE Merit 1 [id number] 831255 957115 176410 5 MERIT Angled Medical 260cm ([id number]) MULTIPACK JL Cardinal 1 [id number] 5 4.0 5Fr Health catheter MULTIPACK 3DRC Cardinal 1 730775 5 5Fr catheter Health DIAGNOSTIC IM Cardinal 1 [id number] 633928 910674 826315 5 5Fr catheter Health ([id number]) DIAGNOSTIC AR Cardinal 1 [id number] 555315 831367 690845 1 5 MOD 5Fr Health Catheter (229779F) MULTIPACK Cardinal 1 504431 5 Pigtail 5 Fr Health catheter EXOSEAL 5Fr Cardinal 1 EX500 542924 794704 931090 1 0 (EX500) Health Signature Audit Bayard Stage Time Signature Unsigned Intra-Procedure 07/06/2020 Melyssa Stone 9:20:46 AM RT(R) Intra-Procedure 07/06/2020 Sadie Garces RN 9:21:55 AM Intra-Procedure 07/06/2020 Ridge Harris 9:22:44 AM Giuliano KIMBLE [facility] [address] [place] [address]
[2020-07-04 11:30] LABS: BASOPHILS 0.3 % (0-2); EOSINOPHILS 0.6 % (0-7); HEMOGLOBIN 15.5 g/dL (13.5-17.5); LYMPHOCYTES 8.9 % (15-50); MCHC 34.4 g/dL (31.0-37.0); MCV 87.4 fL (80.0-100.0); MEAN PLATELET VOLUME 7.5 fL (7.4-10.4); MONOCYTES 10.2 % (2-11); RBC 5.15 10x6/uL (4.20-6.10); RDW 13.6 % (11.5-14.5); WBC 9.4 10x3/uL (4.8-10.8)
[2020-07-04 11:31] LABS: PLATELET COUNT 236 10x3/uL (130-400)
[2020-07-04 11:35] LABS: CALC OSMOLALITY 297 mosm/kg (275-300); CALCIUM 8.7 mg/dL (8.5-10.1); CARBON DIOXIDE 26.9 mmol/L (21.0-32.0); CHLORIDE - SERUM 106 mmol/L (98-107); CREATININE - SERUM 1.3 mg/dL (0.6-1.3); GLUCOSE 288 mg/dL (74-106); POTASSIUM - SERUM 4.3 mmol/L (3.5-5.1); SODIUM 140 mmol/L (136-145); UREA NITROGEN 35 mg/dL (7-18); eGFR NON AFRICAN AMERICAN 58 mL/min (90-120)
[2020-07-04 11:56] LABS: ALKALINE PHOSPHATASE 77 U/L (30-120); ALT (SGPT) 25 U/L (10-68); BILIRUBIN - TOTAL 0.35 mg/dL (0.2-1.3); CKMB 2.8 U/L (0.0-3.6); CREATINE KINASE 47 UL (21-232); PRO BNP 14306 pg/mL (0-125); PROTEIN - SERUM 6.7 g/dL (6.4-8.2)
[2020-07-04 11:57] LABS: INR 1.08 (0.85-1.17)
[2020-07-04 12:07] LABS: TROPONIN-I 0.091 ng/mL (0.000-0.060)
[2020-07-04 12:24] LABS: APTT 31.4 SECONDS (22.8-39.4)
[2020-07-04 13:40] VITALS: BP 183/72
--- NOTE | 2020-07-04 13:44 | NUR ---
URINE OUTPUT 600 CC
[2020-07-04 14:53] VITALS: BP 175/63
[2020-07-04 15:41] VITALS: BP 169/63
--- NOTE | 2020-07-04 15:51 | NUR ---
URINE OUTPUT 500 CC
[2020-07-04 16:24] VITALS: BP 173/51
--- NOTE | 2020-07-04 16:31 | NUR ---
PT TO ROOM FROM ER VIA WHEELCHAIR, SON AT BEDSIDE. PT ON ROOM AIR AT PRESENT. NO NEEDS AT PRESENT. WAITING FOR CARDIO CONSULT.
[2020-07-04] MEDS ORDERED: FLOMAX0.4 MG PO (16:43)
[2020-07-04 18:23] LABS: CKMB 2.8 U/L (0.0-3.6); CREATINE KINASE 36 UL (21-232)
[2020-07-04 18:24] LABS: TROPONIN-I 0.111 ng/mL (0.000-0.060)
[2020-07-04 20:05] VITALS: BP 174/53
[2020-07-05 00:51] VITALS: BP 170/55
[2020-07-05 01:52] LABS: CKMB 2.3 U/L (0.0-3.6); CREATINE KINASE 31 UL (21-232)
[2020-07-05 01:55] LABS: TROPONIN-I 0.104 ng/mL (0.000-0.060)
[2020-07-05 06:34] VITALS: BP 135/72
[2020-07-05 06:44] VITALS: Ht 177.8 cm; Wt 77.3 kg
[2020-07-05 07:52] VITALS: BP 174/56
--- NOTE | 2020-07-05 07:57 | NUR ---
PT RECEIVED AWAKE AND ALERT IN BED, SON AT BEDSIDE. NPO FOR CARDIAC CONSULT. DENIES CHEST PAIN OR SOB AT PRESENT.
[2020-07-05 07:59] LABS: BASOPHILS 0.1 % (0-2); EOSINOPHILS 0.1 % (0-7); HEMATOCRIT 38.8 % (42.0-54.0); HEMOGLOBIN 13.5 g/dL (13.5-17.5); LYMPHOCYTES 9.3 % (15-50); MCH 30.5 pg (26.0-34.0); MCHC 34.8 g/dL (31.0-37.0); MCV 87.6 fL (80.0-100.0); MONOCYTES 9.6 % (2-11); NEUTROPHILS 80.9 % (40-80); PLATELET COUNT 221 10x3/uL (130-400); RBC 4.44 10x6/uL (4.20-6.10); RDW 13.5 % (11.5-14.5)
[2020-07-05 08:13] LABS: ALBUMIN 2.6 g/dL (3.4-5.0); ANION GAP 8.3 mmol/L (8-16); BILIRUBIN - TOTAL 0.35 mg/dL (0.2-1.3); CALCIUM 8.8 mg/dL (8.5-10.1); CARBON DIOXIDE 28.7 mmol/L (21.0-32.0); CREATININE - SERUM 1.4 mg/dL (0.6-1.3); PROTEIN - SERUM 5.8 g/dL (6.4-8.2)
--- NOTE | 2020-07-05 11:59 | HP ---
PATIENT: BRANDI PHILLIPS MEDICAL RECORD: [id number] ACCOUNT: [id number] LOCATION:[address] : 50 ADMISSION DATE: 07/04/20 PCP: No PCP HISTORY AND PHYSICAL EXAMINATION DATE OF ADMISSION: 07/04/2020 CHIEF COMPLAINT: Acute shortness of breath. HISTORY OF PRESENT ILLNESS: This is a 69-year-old white male followed by Dr. Tyson Brower. He has a history of diabetes, coronary artery disease and high cholesterol. He states he has had a couple of heart attacks. He has had stents and bypass surgery. Dr. Ridge Woods is his vascular manager. He states today he was sitting in his chair and had sudden shortness of breath. He denies chest pain. He denies fever, chills, nausea, vomiting, no diaphoresis, no radiation of symptoms down either arm. He is concerned about his heart. He states previously when he had cardiac issues he had pain only in his left elbow. He presented to the Emergency Department where his troponin was 0.091 and it has gone up to 0.111 and his ProBNP is 14,306. He is admitted and cardiology has been consulted. PAST MEDICAL AND SURGICAL HISTORY: Again, coronary artery disease, he has had 2 MIs. He has had diabetes, hyperlipidemia, BPH, depression, osteoarthritis, renal cell cancer, and melanoma. PAST SURGICAL HISTORY: Coronary artery bypass graft, cardiac stents, left nephrectomy, cataract repair, shoulder surgery, wide excision for melanoma removal. ALLERGIES: HE STATES TO CONTRAST DYE, METFORMIN, PROCARDIA, CRESTOR, AND LIPITOR. HOME MEDICATIONS: Include tamsulosin 0.4 mg once a day, citalopram 20 mg once a day, Plavix 75 mg once a day, lisinopril 10 mg once a day, Zetia 10 mg once a day, glipizide ER 5 mg he takes 3 every day, metoprolol tartrate 25 mg twice a day, hydrochlorothiazide 12.5 mg once a day. He is not sure if he takes prednisone 5 mg a day or not. HABITS: He continues to smoke. Denies alcohol or drug use. SOCIAL HISTORY: He is retired from [employer]. He lives alone. He has siblings and children. FAMILY HISTORY: There is heart disease, diabetes, and lung disease in his family. REVIEW OF SYSTEMS: GENERAL: No major weight changes. HEENT: No particular sinus or allergy problems. RESPIRATORY: There is no documented diagnosis of COPD. CARDIAC: He has coronary artery disease as mentioned above. Dr. Woods is his vascular manager. GASTROINTESTINAL: He has heartburn. GENITOURINARY: BPH. MUSCULOSKELETAL: Has arthritic aches and pains. HISTORY AND PHYSICAL [id number] JACQUELINEBRANDI NEUROLOGIC: No migraines or seizures. PSYCHIATRIC: He has some depression. PHYSICAL EXAMINATION: VITAL SIGNS: Temperature 98.6, pulse 53, respirations 18, blood pressure 174/53, O2 sat 97%. GENERAL: He is awake and alert. He does not appear to be in acute distress at this time. SKIN: Warm and dry. HEENT: Grossly within normal limits. NECK: Supple. No JVD or bruit. HEART: Regular rate and rhythm without murmur. LUNGS: Fairly clear. ABDOMEN: Soft, flat, nontender. EXTREMITIES: No edema. LABORATORY DATA: CBC with a white count of 9400, hemoglobin 15.5, hematocrit 45. Basic metabolic panel: Sodium 140, potassium 4.3, chloride 106, CO2 of 26.9, BUN 35, creatinine 1.3, glucose is 288, calcium 8.7. Liver functions are okay. ProBNP 14,306. Troponin 0.091 upon admission and 0.111 few hours later. D-dimer 0.64. ASSESSMENT: 1. Elevated troponin. 2. Acute shortness of breath. 3. History of coronary artery disease. 4. History of diabetes. His last A1c was 6.7 earlier this year. PLAN: He is admitted. Cardiology is consulted. Other tests and procedures as warranted. TRANSINT:[id number] Voice Confirmation ID: [id number] DOCUMENT ID: [id number] MATHIEU ENRIQUEZ MD at 1159 CC: [id number] DICTATION DATE: 07/05/2050 RAISE MINER: 07/05/20 033 ADM IN [place] [address] [place] [id number]
[2020-07-05 12:07] LABS: ANION GAP 11.5 mmol/L (8-16); CALCIUM 8.3 mg/dL (8.5-10.1); CARBON DIOXIDE 26.6 mmol/L (21.0-32.0); CHOL - HDL RATIO 4.2 ratio (2.3-4.9); CREATININE - SERUM 1.4 mg/dL (0.6-1.3); LDL-HDL RATIO 2.4 ratio (1.5-3.5); POTASSIUM - SERUM 4.1 mmol/L (3.5-5.1)
[2020-07-05 12:28] VITALS: BP 181/54
[2020-07-05 16:11] VITALS: BP 127/58
[2020-07-05 19:59] VITALS: BP 176/60
[2020-07-06 00:33] VITALS: BP 179/62
[2020-07-06 05:26] VITALS: BP 182/66
[2020-07-06 09:00] VITALS: BP 95/40
--- NOTE | 2020-07-06 09:38 | NUR ---
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 PT INCISION TO RT GROIN HAS 4X4 COVERED WITH TRANSPARENT DRESSING, CDI.
--- NOTE | 2020-07-06 09:57 | CN ---
PATIENT NAME:BRANDI PHILLIPS MEDICAL RECORD: [id number] : 50 LOCATION:D. D.2138 ADMIT DATE: 07/04/20 ACCOUNT: [id number] CONSULTING PHYSICIAN: KENDRA CLAUDIO MD REFERRING PHYSICIAN: MATHIEU ENRIQUEZ MD DATE OF CONSULTATION: 07/05/2020 HISTORY OF PRESENT ILLNESS: A 69-year-old gentleman well known to our service with a history of coronary artery disease, status post both coronary bypass grafting, intervention. Strong family history of coronary artery disease. Peripheral vascular disease, hypertension, ongoing tobacco use. He had acute onset of breathlessness yesterday along with orthopnea type symptomatology. LV function has been normal in the past, subsequently had elevated troponin as well as BNP. Reports he has stable angina pattern with nothing worsening over at least the past 6 months. We are asked to see him concerning his cardiovascular status. PAST MEDICAL HISTORY: Includes: 1. History of hypertension. 2. Obstructive pulmonary disease. 3. Coronary artery disease as described above. 4. Peripheral vascular disease. 5. Dyslipidemia. 6. Diabetes mellitus. ALLERGIES: CONTRAST. MEDICATIONS: Include aspirin 81 daily, glipizide 2.5 mg b.i.d., Protonix 40 daily, potassium supplementation, Celexa 20 daily, metoprolol 50 b.i.d., lisinopril 10 daily, Zetia 10 daily, Plavix 75 daily. SOCIAL HISTORY: Smokes about a pack to pack and half a day, nondrinker, stays quite active. No set exercise program. Easily takes care of all his ADLs, as well as grandkids. REVIEW OF SYSTEMS: The patient reports easy bruising but reports no swollen glands. The patient reports no fever, no night sweats, no significant weight gain, no significant weight loss. No significant exercise tolerance. The patient reports no dry eyes, no irritation, no vision change. Patient reports no difficulty hearing and no ear pain. Patient reports no frequent nose bleeds or nose and sinus problems. Patient reports on arm pain on exertion. No shortness of breath while lying down. No history of heart murmur. Patient reports no cough, no wheezing or coughing up blood. Patient reports no abdominal pain, no vomiting. Normal appetite. No diarrhea and not vomiting blood. No nausea and no constipation. Patient reports no incontinence. No difficulty urinating. No hematuria. No increased frequency. Patient reports no muscle aches. No weakness, no arthralgias, no back pain. No swelling of the extremities. Patient reports no abnormal mole, no jaundice, no rashes. Reports no loss of consciousness. No weakness and no numbness. No seizures, dizziness, or headaches. The patient reports no depression, no sleep disturbance, feeling safe in a relationship and no alcohol abuse. Patient reports on fatigue. Reports no runny nose or sinus pressure. No itching, no hives, and no frequent sneezing. PHYSICAL EXAMINATION: CONSULT REPORT [id number] BRANDI PHILLIPS GENERAL: No acute distress, appears stated age. Alert and oriented times 3. VITAL SIGNS: 124/56, pulse 53 and regular. HEENT: Normocephalic, atraumatic. NECK: No bruits noted. HEART: Regular. I do not hear an S3. There is a II/ systolic ejection murmur. LUNGS: Good air excursion. ABDOMEN: Soft, nontender. EXTREMITIES: Pulses are 2+ with no edema. DIAGNOSTIC STUDIES: EKG showed nonspecific ST-T changes, poor R-wave progression. IMPRESSION: History sounds suspicious for new onset of cardiomyopathy. Certainly, given his elevated cardiac enzymes, could be an ischemic episode. PLAN: We will plan for diagnostic angiography. Further recommendation based on above. TRANSINT:[id number] Voice Confirmation ID: [id number] DOCUMENT ID: [id number] KENDRA CLAUDIO MD at 0957 CC: [id number] DICTATION DATE: 07/05/20 1133 CONTOUR PATH TAPE MILL OPERATOR: 07/05/20 1155 ADM IN [place] [id number] [place] [address]
[2020-07-06] MEDS ORDERED: CARDURA2 MG PO (14:14)
[2020-07-06] MEDS ORDERED: ALDACTONE25 MG PO (14:15)
--- NOTE | 2020-07-06 15:24 | NUR ---
DISCHARGE INSTRUCTIONS REV'D WITH PT AND FAMILY. PT AND FAMILY STATE UNDERSTANDING. PT DISCHARGING HOME WITH SON. PT ESCORTED OUT VIA WHEELCHAIR BY HOSPITAL STAFF.
--- NOTE | 2020-07-08 14:27 | OP ---
PATIENT NAME: BRANDI PHILLIPS MEDICAL RECORD: [id number] :50 LOCATION:D.M2 D.2138 ADMISSION DATE:07/04/20 SURGEON: KENDRA CLAUDIO MD DATE OF OPERATION: 07/06/2020 PROCEDURE PERFORMED: Left heart catheterization, selective coronary angiography, right femoral artery approach. CATHETERS: A 5-Estonian sheath, 5/4 left and right Ford, 5/4 pig. The procedure was well tolerated. The patient was returned to the vance. Sheath removed. ExoSeal device was placed. FINDINGS: Left ventriculography in 30 degree GLASER view shows global hypokinesis with reduced EF, estimated EF 30% to 35%. CORONARY ANATOMY: Left main: Left main fills for a short period of time and is seen via competitive flow. Circumflex: Small circumflex, free of disease. Right coronary artery: Totally occluded in its mid portion. BYPASS GRAFTS: 1. LIRA to LAD is widely patent throughout its course without evidence of post-anastomotic stenosis. 2. The saphenous vein graft to the right coronary is widely patent. Previously placed stent is widely patent. No evidence of post-anastomotic stenosis. IMPRESSION: Widely patent bypass grafts. Decreased left ventricular systolic function. PLAN: For treatment of underlying cardiomyopathy. We will add Aldactone. 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 Could benefit from Farxiga in the near future. Further recommendations based on the above. TRANSINT:[id number] Voice Confirmation ID: [id number] DOCUMENT ID: [id number] KENDRA CLAUDIO MD at 1427 CC: [id number] DICTATION DATE: 07/06/20922 CHEMISTRY LECTURER: 07/06/20 1015 DIS IN 07/06/20 [facility] [address] [place] [address]
--- NOTE | 2020-07-08 14:27 | EC ---
PATIENT:BRANDI PHILLIPS DATE OF SERVICE: 07/04/20 SEX: M MEDICAL RECORD: [id number] DATE OF : 50 LOCATION:D.M2 D.213 AGE OF PATIENT: 69 ADMISSION DATE: 07/04/20 REFERRING PHYSICIAN: INTERPRETING PHYSICIAN: KENDRA CLAUDIO MD ECHOCARDIOGRAM REPORT ECHO CHARGES 4 ECHO COMPLETE Date: 07/05/20 CLINICAL DIAGNOSIS: CHF HX OF CAD/CABG ECHOCARDIOGRAPHIC MEASUREMENTS (adult normal given) AC root (d.<3.7cm) 3.4 cm LV Septum d (<1.2 cm> 1.4 cm Valve Excursion 2.0 cm LV Septum (systole) 1.6 cm Left Atria (s.<4.0cm> 3.6 cm LVPW d(<1.2cm) 1.4 cm RV (d.<2.3cm) 3.7 cm LVPW (sytole) 1.6 cm LV diastole(<5.6CM) 5.7 cm MV E-F(>70mm/sec) cm LV systole 4.3 cm LVOT Diameter 2.1 cm MV exc.(>10mm) 1.5 cm Est.ejection fraction (50-75%) % DOPPLER: LVIT cm/sec A 27.0 cm/sec E 126.0 cm/sec LA cm/sec RVSP 41 mmHg LVOT 125 cm/sec AOP1/2T 468 m/s Asc. Ao 176 cm/sec RVOT 58 cm/sec RA cm/sec PA 133 cm/sec AV Gradient Peak 12.37mmHg AV Mean 5.90 mmHg AV Area 2.7 cm MV Gradient Peak 9.77 mmHg MV Mean 2.60 mmHg MV Area cm COMMENTS: Figurine Maker: 2 LADAN GONZALEZ [employer] Analyst: 3 Dr. Woods TAPE# PACS Pericardial Effusion N DATE OF SERVICE: Adequate 2D, color flow imaging, spectral Doppler, and M-Mode. FINDINGS: LVH is present. LV internal dimensions are upper limits of normal at 5.7 cm. LV is globally hypokinetic, reduced EF 40% to 45%. Aortic valve sclerosed without stenosis by Doppler interrogation. There is a mild AI by color flow imaging. Left atrium is normal at 3.6 cm. Mitral valve shows no prolapse. [id number] MR. Right side is grossly normal. Mild TR. ECHOCARDIOGRAM REPORT [id number] BRANDI PHILLIPS TRANSINT:[id number] Voice Confirmation ID: [id number] DOCUMENT ID: [id number] KENDRA CLAUDIO MD at 1427 CC: [id number] DICTATION DATE: 07/06/20924 UMBRELLA FINISHER: 07/06/20 1029 DIS IN 07/06/20 [place] [id number] [place] [id number]
== END 2020-07-06 15:25 | disposition home or self-care (01) | DRG 286 ==
LOC: D.ER 10:54 → D.M2 15:07
PROVIDERS: Family Medicine; Internal Medicine Interventional Cardiology; ADMIT Family Medicine; ATTEND Family Medicine
PROC: B2131ZZ Fluoroscopy of Multiple Coronary Artery Bypass Grafts using Low Osmolar Contrast (ICD-10-PCS; 2020-07-06)
PROC: B2151ZZ Fluoroscopy of Left Heart using Low Osmolar Contrast (ICD-10-PCS; 2020-07-06)
PROC: 4A023N7 Measurement of Cardiac Sampling and Pressure, Left Heart, Percutaneous Approach (ICD-10-PCS; 2020-07-06)
PROC: B2111ZZ Fluoroscopy of Multiple Coronary Arteries using Low Osmolar Contrast (ICD-10-PCS; principal; 2020-07-06 08:27)
DX: I42.9 Cardiomyopathy, unspecified (principal); I50.43 Acute on chronic combined systolic (congestive) and diastolic (congestive) heart failure; I25.10 Atherosclerotic heart disease of native coronary artery without angina pectoris; E11.9 Type 2 diabetes mellitus without complications; E78.5 Hyperlipidemia, unspecified; N40.0 Benign prostatic hyperplasia without lower urinary tract symptoms; F32.9 Major depressive disorder, single episode, unspecified; J44.9 Chronic obstructive pulmonary disease, unspecified

== ENCOUNTER → 2020-08-05 11:50 | Outpatient (CLI) | payer MEDICARE, OTHER ==
[~2020-08-05 11:50] MED LIST changes: +ALDACTONE25 MG PO; +FLOMAX0.4 MG PO
== END | disposition home or self-care (01) ==
LOC: D.US 11:50
PROVIDERS: ATTEND General Practice
DX: I70.211 Atherosclerosis of native arteries of extremities with intermittent claudication, right leg (principal)